=== PATIENT | male | born 1940 | race Caucasian/White ===

== ENCOUNTER 2017-06-06 06:27 | Inpatient (IN) | payer OTHER, MEDICARE ==
[2017-05-31 14:01] VITALS: BMI 36.3
[~2017-06-06 06:27] MED LIST: CELECOXIB 200 MG CAPSULE PO ONE; GABAPENTIN 300 MG CAPSULE (FP) PO ONE; PANTOPRAZOLE 40 MG TABLET (FP) PO ONE; oxyCODONE HCL 10 MG SUSTAINED ACTING TABLET PO ONE
[2017-06-06] MEDS ORDERED: DEXAMETHASONE SOD PHOSPHATE/PF 10 MG/ML SDV ONE (07:49)
[2017-06-06] MEDS ORDERED: MIDAZOLAM HCL 2 MG/2 ML SINGLE DOSE VIAL ONE (07:49)
[2017-06-06] MEDS ORDERED: BUPIVACAINE HCL/PF (5 MG/ML) 30 ML VIAL IJ ONE (07:49)
[2017-06-06] MEDS ORDERED: ROPIVICAINE 0.2%/MORPH PF/KETOROLAC - 51ML DISP.SYRINGE IA ONE ×2 (08:00→08:43)
[2017-06-06] MEDS ORDERED: TRANEXAMIC ACID 1000 MG/10 ML VIAL IVPUSH ONE (08:00)
[2017-06-06] MEDS ORDERED: CEFAZOLIN 2 GM in DEXTROSE 5%-WATER - 50 ML IVPB ONE (08:00)
[2017-06-06] MEDS ORDERED: ceFAZolin SODIUM 1 GM VIAL ONE ×3 (08:43→09:40)
[2017-06-06] MEDS ORDERED: TRANEXAMIC ACID 1000 MG/10 ML VIAL ONE ×3 (08:43→13:15)
[2017-06-06] MEDS ORDERED: VANCOMYCIN 1,000 MG VIAL (RESTRICTED TO ID ONLY) ONE (08:43)
--- NOTE | 2017-06-06 08:53 | HP ---
Admitting History and Physical - Admission Chief Complaint: left hip osteroarthritis x years History of Present Illness: 77 year old male presenting in regard to his left hip. Longstanding history of left hip osteoarthritis. Patient complains of pain, limited ROM, difficulty ambulating and difficulty with ADLs including putting on his socks and shoes. Patient has failed conservative treatment measures including PO medication, activity modification, injections and an exercise program. At this point, patient would like to proceed with a left total hip arthroplasty, MAKOplasty. History Source: Patient - Past Medical History Cardiovascular: Yes: HTN Renal/: Yes: BPH - Past Surgical History Additional Past Surgical History: see written history & physical - Advance Directives Advance Directives: Yes: Health Care Proxy - Smoking History Smoking history: Former smoker Have you smoked in the past 12 months: Yes Aproximately how many cigarettes per day: 40 If you are a former smoker, when did you quit?: 1986 - Alcohol/Substance Use Hx Alcohol Use: Yes (SOCIALLY) Home Medications - Allergies Allergies/Adverse Reactions: Allergies Allergy/AdvReac Type Severity Reaction Status Date / Time No Known Allergies Allergy Verified 05/31/17 14:01 - Home Medications Home Medications: Ambulatory Orders Aspirin Coated [Ecotrin -] 81 mg PO HS 05/31/17 Quinapril HCl 80 mg PO DAILY 05/31/17 Silodosin [Rapaflo] 4 mg PO DAILY 05/31/17 Nifedipine [Adalat cc] 90 mg PO DAILY 06/05/17 Review of Systems - Review of Systems Musculoskeletal: reports: Decreased ROM (left hip), Joint Pain (left hip) Physical Examination Vital Signs: Vital Signs Temperature 98.2 F 06/06/17 06:52 Pulse Rate 76 06/06/17 06:52 Respiratory Rate 18 06/06/17 06:52 Blood Pressure 142/76 06/06/17 06:52 O2 Sat by Pulse Oximetry (%) Constitutional: Yes: Well Nourished, No Distress Eyes: Yes: Conjunctiva Clear HENT: Yes: Atraumatic, Nasal Congestion Neck: Yes: Supple Cardiovascular: Yes: Regular Rate and Rhythm Respiratory: Yes: Regular Gastrointestinal: Yes: Soft ...Rectal Exam: Yes: Deferred Musculoskeletal: Yes: Joint Stiffness (left hip) Assessment/Plan 77 year old male presenting in regard to his left hip. Longstanding history of left hip osteoarthritis. Patient complains of pain, limited ROM, difficulty ambulating and difficulty with ADLs including putting on his socks and shoes. Patient has failed conservative treatment measures including PO medication, activity modification, injections and an exercise program. Pros, cons, risks, benefits and alternatives of a left total hip arthroplasrty, MAKOplasty were discussed. Patient confirms their understanding, patient would like to proceed with a left total hip arthroplasty, MAKOplasty.
[2017-06-06] MEDS ORDERED: ePHEDrine SULFATE 50 MG/1 ML AMPULE ONE (09:40)
[2017-06-06] MEDS ORDERED: ONDANSETRON 4 MG/2 ML VIAL ONE (09:40)
[2017-06-06] MEDS ORDERED: DEXAMETHASONE SOD PHOSPHATE 4 MG/1 ML VIAL ONE (09:40)
[2017-06-06] MEDS ORDERED: PROPOFOL 20 ML ONE ×5 (09:58→13:44)
[2017-06-06] MEDS ORDERED: SODIUM CHLORIDE 0.9% P/F 10 ML VIAL IJ ONE (10:17)
[2017-06-06] MEDS ORDERED: PHENYLEPHRINE HCL 10 MG/1 ML SINGLE DOSE VIAL ONE (10:17)
[2017-06-06] MEDS ORDERED: METOPROLOL TARTRATE 5 MG/5 ML VIAL ONE (12:20)
[2017-06-06] MEDS ORDERED: KETOROLAC TROMETHAMINE 30 MG/1 ML VIAL ONE (14:15)
[2017-06-06] MEDS ORDERED: traMADol HCL 50 MG TABLET ONE (14:15)
[2017-06-06] MEDS ORDERED: ACETAMINOPHEN INJECTION 100 ML IVPB ONE (14:15)
--- NOTE | 2017-06-06 14:28 | OP ---
Operative Note - Note: Operative Date: 06/06/17 Pre-Operative Diagnosis: Left hip OA Operation: Left TRACI Post-Operative Diagnosis: Same as Pre-op Surgeon: Sampson Echeverria Supervisor Photocomposition: Jayna Bell Anesthesia: Spinal Estimated Blood Loss (mls): 400
[2017-06-06] MEDS ORDERED: ONDANSETRON 4 MG/2 ML VIAL IVPUSH PRN ×2 (14:29→14:31)
[2017-06-06] MEDS ORDERED: MAGNESIUM HYDROX 2400MG/30ML ORAL SUSPENSION 30 ML CUP PO PRN (14:29)
[2017-06-06] MEDS ORDERED: MAG HYDROX/AL HYDROX/SIMETH 30 ML UNIT-DOSE CUP PO PRN (14:29)
[2017-06-06] MEDS ORDERED: LACTATED RINGERS SOLUTION 1,000 ML IV SCH (14:30)
[2017-06-06] MEDS ORDERED: ACETAMINOPHEN 1000 MG/100 ML VIAL (NON FORMULARY) IVPB ONE (14:31)
[2017-06-06] MEDS ORDERED: oxyCODONE HCL 5 MG TABLET PO PRN ×2 (14:31)
[2017-06-06] MEDS ORDERED: PROMETHAZINE HCL 25 MG/1 ML VIAL IVPUSH PRN (14:31)
[2017-06-06] MEDS ORDERED: traMADol HCL 50 MG TABLET PO SCH (14:45)
[2017-06-06] MEDS: KETOROLAC TROMETHAMINE 30 MG/1 ML VIAL IVPUSH SCH ×2 (14:48→21:11)
[2017-06-06] MEDS: CEFAZOLIN 2 GM/D5W 2 GM/50 ML ML IVPB SCH (17:20)
[2017-06-06] MEDS ORDERED: DEXAMETHASONE SOD PHOSPHATE 10 MG/1 ML VIAL IVPUSH ONE (20:00)
[2017-06-06] MEDS: ACETAMINOPHEN 325 MG TABLET (FP) PO SCH (21:12)
[2017-06-06] MEDS: ASCORBIC ACID 500 MG TABLET (FP) PO SCH (22:39)
[2017-06-06] MEDS: traMADol HCL 50 MG TABLET PO SCH (22:39)
[2017-06-06] MEDS: SENNOSIDES/DOCUSATE COMBO (SENNA PLUS) TABLET (UD) PO SCH (22:39)
[2017-06-06] MEDS: GABAPENTIN 300 MG CAPSULE (FP) PO SCH (22:39)
[2017-06-06] MEDS: oxyCODONE HCL 10 MG SUSTAINED ACTING TABLET PO SCH (22:40)
[2017-06-07] MEDS: CEFAZOLIN 2 GM/D5W 2 GM/50 ML ML IVPB SCH (02:14)
[2017-06-07] MEDS: KETOROLAC TROMETHAMINE 30 MG/1 ML VIAL IVPUSH SCH ×2 (03:10→08:30)
[2017-06-07] MEDS: ACETAMINOPHEN 325 MG TABLET (FP) PO SCH ×4 (03:11→21:47)
[2017-06-07] MEDS: ASPIRIN 325 MG TABLET PO SCH (08:30)
[2017-06-07 09:03] LABS: ANION GAP 7 (8-16); BLOOD UREA NITROGEN 32 mg/dl (7-18); CALCIUM 8.8 mg/dl (8.4-10.2); CHLORIDE 104 mmol/L (98-107); CO2 24 mmol/L (22-28); CREATININE 1.2 mg/dl (0.6-1.3); GLUCOSE,RANDOM 145 mg/dl (74-106); POTASSIUM 5.2 mmol/L (3.5-5.1); SODIUM 135 mmol/L (136-145)
[2017-06-07 09:06] LABS: HEMATOCRIT 34.1 % (35.4-49); HEMOGLOBIN 11.4 GM/dl (11.7-16.9); MCH 31.1 pg (25.7-33.7); MCHC 33.5 g/dl (32.0-35.9); MEAN CELL VOLUME 92.9 fl (80-96); PLATELET COUNT 239 K/MM3 (134-434); RBC 3.67 M/mm3 (4.00-5.60); RDW 12.4 % (11.9-15.9); WHITE BLOOD COUNT 11.4 K/mm3 (4.0-10.8)
[2017-06-07] MEDS ORDERED: PATIENT'S OWN MEDICATION (NON-FORMULARY) (Silodosin [Rapaflo] 4 MG) PO SCH (10:00)
[2017-06-07] MEDS ORDERED: QUINAPRIL HCL 20 MG TABLET (FP) ONE (10:30)
[2017-06-07] MEDS: GABAPENTIN 300 MG CAPSULE (FP) PO SCH ×2 (10:42→21:46)
[2017-06-07] MEDS: NIFEdipine E.R. 90 MG TABLET (FP) PO SCH (10:42)
[2017-06-07] MEDS: CELECOXIB 200 MG CAPSULE PO SCH (10:42)
[2017-06-07] MEDS: PANTOPRAZOLE 40 MG TABLET (FP) PO SCH (10:42)
[2017-06-07] MEDS: traMADol HCL 50 MG TABLET PO SCH ×4 (10:42→21:47)
[2017-06-07] MEDS: MULTIVITAMINS (DAILY MVI) TABLET (FP) PO SCH (10:42)
[2017-06-07] MEDS: oxyCODONE HCL 10 MG SUSTAINED ACTING TABLET PO SCH ×2 (10:43→21:46)
[2017-06-07] MEDS: ASCORBIC ACID 500 MG TABLET (FP) PO SCH ×2 (10:43→21:46)
[2017-06-07] MEDS: SENNOSIDES/DOCUSATE COMBO (SENNA PLUS) TABLET (UD) PO SCH ×2 (10:43→21:46)
[2017-06-07] MEDS: QUINAPRIL HCL 40 MG TABLET (FP) PO SCH (10:43)
--- NOTE | 2017-06-07 11:46 | PN ---
Progress Note (short form) - Note Progress Note: ANESTHESIA POSTOP: 77 YO MALE POD#1 S/P TRACI S: Patient sitting in chair, watching TV, in no distress, reports no pain O: Vitals WNL A/P: Continue current care, encouraged ambulation and participation in PT, encouraged IS use
[2017-06-07 23:03] VITALS: PULSE 70
--- NOTE | 2017-06-08 01:41 | PN ---
Progress Note (short form) - Note Progress Note: Pt seen and examined. Doing very well. AVSS Selected Entries 06/07/17 22:00 Temperature 98.1 F Pulse Rate 70 Respiratory 18 Rate Blood Pressure 129/68 O2 Sat by Pulse 95 Oximetry (%) Oxygen Delivery Room Air Method Laboratory Tests 06/07/17 06/07/17 08:07 08:07 WBC 11.4 H Hgb 11.4 L Hct 34.1 L Plt Count 239 Sodium 135 L Potassium 5.2 H Chloride 104 Carbon Dioxide 24 Anion Gap 7 L BUN 32 H Creatinine 1.2 Random Glucose 145 H Calcium 8.8 Gen: NAD LLE: c/d/i, NVID A/P 77yo male POD#1 s/p L TRACI 1. D/C in AM after PT; f/u in office in 10-14 days, call for appt.
--- NOTE | 2017-06-08 01:49 | DS ---
Physical Examination Vital Signs: Vital Signs Temperature 98.1 F 06/07/17 22:00 Pulse Rate 70 06/07/17 22:00 Respiratory Rate 18 06/07/17 22:00 Blood Pressure 129/68 06/07/17 22:00 O2 Sat by Pulse Oximetry (%) 95 06/07/17 22:00 Labs: CBC, BMP 06/07/17 08:07 06/07/17 08:07 Discharge Summary Reason For Visit: OSTEOARTHRITIS OF LEFT HIP Current Active Problems Osteoarthritis of left hip (Acute) Procedures: Principal: Left Makoplasty TRACI Hospital Course: Admitted for elective surgery. Procedure performed without complications. Pt received postoperative antibiotic prophylaxis and DVT ppx. Ambulated with physical therapy. Stable for discharge home with outpatient followup. Condition: Stable - Instructions Diet, Activity, Other Instructions: Dr Echeverria - Hip Replacement Instructions Keep the Aquacel dressing on until removed by Dr. Echeverria in 10-14 days - it is antibacterial and waterproof and you can shower with it on. Call the office for a follow-up appointment with Dr. Echeverria in 10-14 days. [phone] Take one Aspirin 325mg daily for 6 weeks to prevent blood clots in your legs. Take one Pantoprazole 40mg daily for 6 weeks to protect against heartburn and ulcers. Take Celebrex 200mg once daily for 30 days to reduce swelling and inflammation. Take Cephalexin (antibiotic) 500mg 3x/day for 2 weeks to protect against wound infection while the skin heals. Take a multivitamin, extra vitamin C supplement, and stool softener daily. For pain: *Mild pain (1-3/10): Take 1 Tramadol tablet every 4 hours as needed. Moderate pain (4-6/10): Take 1 Tramadol tablet and 1 Percocet tablet every 4 hours as needed. Severe pain (7-10/10): Take 1 Tramadol tablet and 2 Percocet tablets every 4 hours as needed. Activity: You can put as much weight on the operative leg as you want. For the first 6 weeks, all you need to do is walk around the house, go up/down stairs, and sit down/get up. After 6 weeks when everything is healed (and bone has grown into the implant) you will be sent for more intensive outpatient physical therapy. Always use a walker or cane for balance and to prevent falls. Disposition: VNS/HOME HEALTH CARE - Home Medications Comprehensive Discharge Medication List: Ambulatory Orders Quinapril HCl 80 mg PO DAILY 05/31/17 Silodosin [Rapaflo] 4 mg PO DAILY 05/31/17 Nifedipine [Adalat cc] 90 mg PO DAILY 06/05/17 Ascorbic Acid [Vitamin C -] 500 mg PO BID tablet 06/08/17 Aspirin [ASA -] 325 mg PO DAILY@0800 tablet 06/08/17 Celecoxib [CeleBREX -] 200 mg PO DAILY #30 capsule 06/08/17 Cephalexin Monohydrate [Keflex -] 500 mg PO TID #42 capsule 06/08/17 Multivitamins [Multivit ([facility] Formulary)] 1 tab PO DAILY tab 06/08/17 Oxycodone HCl/Acetaminophen [Percocet 5-325 mg Tablet] 1 - 2 tab PO Q4H PRN #60 tablet MDD 8 06/08/17 Pantoprazole Sodium [Protonix -] 40 mg PO DAILY #40 tablet.ec 06/08/17 Sennosides/Docusate Sodium [Pericolace -] 2 tablet PO BID tablet 06/08/17 Tramadol HCl [Ultram -] 50 mg PO Q4H PRN #90 tablet MDD 6 06/08/17
[2017-06-08] MEDS: ACETAMINOPHEN 325 MG TABLET (FP) PO SCH ×3 (03:07→09:37)
[2017-06-08 07:43] LABS: HEMATOCRIT 34.5 % (35.4-49); HEMOGLOBIN 11.5 GM/dl (11.7-16.9); MCH 31.2 pg (25.7-33.7); MCHC 33.3 g/dl (32.0-35.9); MEAN CELL VOLUME 93.6 fl (80-96); MEAN PLT VOLUME 8.4 fl (7.5-11.1); PLATELET COUNT 278 K/MM3 (134-434); RBC 3.68 M/mm3 (4.00-5.60); RDW 12.9 % (11.9-15.9); WHITE BLOOD COUNT 9.6 K/mm3 (4.0-10.8)
[2017-06-08 07:50] VITALS: BP 132/68; TEMP 98.3
[2017-06-08 08:18] LABS: ANION GAP 10 (8-16); BLOOD UREA NITROGEN 35 mg/dl (7-18); CALCIUM 8.8 mg/dl (8.4-10.2); CHLORIDE 99 mmol/L (98-107); CO2 25 mmol/L (22-28); CREATININE 1.2 mg/dl (0.6-1.3); GLUCOSE,RANDOM 103 mg/dl (74-106); POTASSIUM 4.3 mmol/L (3.5-5.1); SODIUM 134 mmol/L (136-145)
[2017-06-08] MEDS ORDERED: QUINAPRIL HCL 20 MG TABLET (FP) ONE (09:28)
[2017-06-08] MEDS: NIFEdipine E.R. 90 MG TABLET (FP) PO SCH (09:34)
[2017-06-08] MEDS: MULTIVITAMINS (DAILY MVI) TABLET (FP) PO SCH (09:34)
[2017-06-08] MEDS: GABAPENTIN 300 MG CAPSULE (FP) PO SCH (09:35)
[2017-06-08] MEDS: ASCORBIC ACID 500 MG TABLET (FP) PO SCH (09:35)
[2017-06-08] MEDS: QUINAPRIL HCL 40 MG TABLET (FP) PO SCH (09:35)
[2017-06-08] MEDS: ASPIRIN 325 MG TABLET PO SCH (09:35)
[2017-06-08] MEDS: PANTOPRAZOLE 40 MG TABLET (FP) PO SCH (09:36)
[2017-06-08] MEDS: CELECOXIB 200 MG CAPSULE PO SCH (09:36)
[2017-06-08] MEDS: traMADol HCL 50 MG TABLET PO SCH ×2 (09:36→09:37)
--- NOTE | 2017-06-14 15:43 | PATH ---
Surgical Pathology Report Patient Name: ALEC LORD Med. Rec. #: [id number] /Age/Gender: 1940 (Age: 77) / M Account: [id number] [facility] Taken: 06/06/2017 Received: 06/06/2017 Reported: 06/14/2017 Physicians: Sampson Echeverria M.D. Specimen(s) Received LEFT FEMORAL HEAD Clinical History Osteoarthritis left hip Final Diagnosis BONE, LEFT FEMORAL HEAD, REPLACEMENT: DEGENERATIVE JOINT DISEASE. Electronically Signed Alec Yoon M.D. Gross Description Received in formalin, labeled "left femoral head," is a 5.5 x 5.5 x 4.6 cm. femoral head with a 0.8 cm in length portion of femoral neck attached. The margin of resection is smooth. There is a 5.3 cm greatest dimension area of eburnation identified. The remaining articular surface is wei-yellow and diffusely granular. The underlying trabecular bone is yellow and hard. A graphic art sales representative section is submitted in one cassette, following decalcification. 06/08/201706/08/2017
== END 2017-06-08 11:31 | disposition home health service (06) | DRG 470 ==
LOC: FM/S 06:27
PROVIDERS: ADMIT Student in an Organized Health Care Education/Training Program; ATTEND Student in an Organized Health Care Education/Training Program
PROC: 8E0Y0CZ Robotic Assisted Procedure of Lower Extremity, Open Approach (ICD-10-PCS; 2017-06-06)
PROC: 0SRB0JZ Replacement of Left Hip Joint with Synthetic Substitute, Open Approach (ICD-10-PCS; principal; 2017-06-06 10:15)
DX: M16.12 Unilateral primary osteoarthritis, left hip (principal); I10 Essential (primary) hypertension; N40.0 Benign prostatic hyperplasia without lower urinary tract symptoms; Z87.891 Personal history of nicotine dependence
CPT/HCPCS: 36415; 73502-TC-LT; 80048; 85027; 88304-TC; 88311-TC; 94010; 94760; 97116-GP; 97162-GP; J1100

== ENCOUNTER 2018-05-26 06:04 | Inpatient (IN) | payer OTHER, MEDICARE ==
[2018-05-19 15:21] VITALS: BMI 33.9
[~2018-05-26 06:04] MED LIST changes: -PANTOPRAZOLE 40 MG TABLET (FP) PO ONE; +ROPIVICAINE 0.2%/MORPH PF/KETOROLAC - 51ML DISP.SYRINGE IA ONE; +TRANEXAMIC ACID 1000 MG/10 ML VIAL IVPUSH ONE
[2018-05-26] MEDS ORDERED: PANTOPRAZOLE 40 MG TABLET (FP) PO ONE (06:06)
--- NOTE | 2018-05-26 07:17 | HP ---
Admitting History and Physical - Admission Chief Complaint: Right hip osteoarthritis x years History of Present Illness: 78-year-old male presents in regard to his right hip. Long-standing history of right hip osteoarthritis. Patient complains of pain, and range of motion, difficulty with activities of daily living, and difficulty ambulating. Patient has failed conservative treatment options including PO medications, activity modification, injections, and exercise programs. At this point, patient would like to proceed with surgical intervention-right total hip arthroplasty MAKOplasty. - Past Medical History Cardiovascular: Yes: HTN Renal/: Yes: BPH (overactive bladder) Musculoskeletal: Yes: Osteoarthritis - Past Surgical History Additional Past Surgical History: See written history and physical. - Advance Directives Advance Directives: Yes: Living Will, Health Care Proxy - Smoking History Smoking history: Former smoker Have you smoked in the past 12 months: No Aproximately how many cigarettes per day: 40 If you are a former smoker, when did you quit?: 1974 - Alcohol/Substance Use Hx Alcohol Use: Yes (ocasional) Home Medications - Allergies Allergies/Adverse Reactions: Allergies Allergy/AdvReac Type Severity Reaction Status Date / Time No Known Allergies Allergy Verified 05/31/17 14:01 - Home Medications Home Medications: Ambulatory Orders Docusate Sodium 100 mg PO DAILY 01/15/18 Nifedipine [Nifedipine ER] 90 mg PO DAILY 01/15/18 Quinapril HCl [Accupril -] 40 mg PO DAILY 01/15/18 Ascorbic Acid [Vitamin C] 1,000 mg PO DAILY 05/15/18 Mirabegron [Myrbetriq] 50 mg PO HS 05/15/18 Multivit-Mins/Iron/Folic/Lycop [Centrum Men's Tablet] 1 each PO DAILY 05/15/18 Sulfamethoxazole/Trimethoprim [Bactrim Ds -] 1 tab PO BID 05/16/18 Review of Systems - Review of Systems Musculoskeletal: reports: Decreased ROM (right hip), Joint Pain (right hip) Physical Examination Vital Signs: Vital Signs Temperature 97.7 F 05/26/18 06:39 Pulse Rate 72 05/26/18 06:39 Respiratory Rate 14 05/26/18 06:39 Blood Pressure 135/68 05/26/18 06:39 O2 Sat by Pulse Oximetry (%) Constitutional: Yes: Well Nourished, No Distress Eyes: Yes: Conjunctiva Clear HENT: Yes: Atraumatic Neck: Yes: Supple Cardiovascular: Yes: Regular Rate and Rhythm Respiratory: Yes: Regular Gastrointestinal: Yes: Soft ...Rectal Exam: Yes: Deferred Musculoskeletal: Yes: Joint Stiffness (right hip) Assessment/Plan 78-year-old male presents in regard to his right hip. Long-standing history of right hip osteoarthritis. Patient complains of pain, and range of motion, difficulty with activities of daily living, and difficulty ambulating. Patient has failed conservative treatment options including PO medications, activity modification, injections, and exercise programs. At this point, patient would like to proceed with surgical intervention-right total hip arthroplasty MAKOplasty. Pros, cons, risks, and benefits of a right total hip arthroplasty MAKOplasty were discussed with the patient at length. Patient confirms his understanding, and consent to proceed with a right total hip arthroplasty to MAKOplasty.
[2018-05-26] MEDS ORDERED: MIDAZOLAM HCL 2 MG/2 ML SINGLE DOSE VIAL ONE ×3 (07:32→09:26)
[2018-05-26] MEDS ORDERED: DEXAMETHASONE SOD PHOSPHATE/PF 10 MG/ML SDV ONE (07:32)
[2018-05-26] MEDS ORDERED: BUPIVACAINE HCL/PF (5 MG/ML) 30 ML VIAL IJ ONE (07:32)
[2018-05-26] MEDS ORDERED: ceFAZolin SODIUM 1 GM VIAL ONE (08:10)
[2018-05-26] MEDS ORDERED: DEXMEDETOMIDINE HCL 200 MCG/2 ML ML IVPB ONE (09:21)
[2018-05-26] MEDS ORDERED: SODIUM CHLORIDE 0.9% P/F 10 ML VIAL IJ ONE ×2 (09:24→10:15)
[2018-05-26] MEDS ORDERED: ROPIVICAINE 0.2%/MORPH PF/KETOROLAC - 51ML DISP.SYRINGE IA ONE (09:28)
[2018-05-26] MEDS ORDERED: VANCOMYCIN 1,000 MG VIAL (RESTRICTED TO ID ONLY) IVPB ONE (09:29)
[2018-05-26] MEDS ORDERED: HYDROmorphone HCL/PF 1 MG/ML AMP ONE (10:06)
[2018-05-26] MEDS ORDERED: PROPOFOL 20 ML ONE (10:21)
[2018-05-26] MEDS ORDERED: ePHEDrine SULFATE 50 MG/1 ML AMPULE ONE (10:58)
[2018-05-26] MEDS ORDERED: MAGNESIUM HYDROX 2400MG/30ML ORAL SUSPENSION 30 ML CUP PO PRN (12:43)
[2018-05-26] MEDS ORDERED: MAG HYDROX/AL HYDROX/SIMETH 30 ML UNIT-DOSE CUP PO PRN (12:43)
[2018-05-26] MEDS ORDERED: ONDANSETRON 4 MG/2 ML VIAL IVPUSH PRN (12:43)
[2018-05-26] MEDS ORDERED: LACTATED RINGERS SOLUTION 1,000 ML IV SCH ×2 (12:45→15:00)
--- NOTE | 2018-05-26 12:56 | OP ---
Operative Note - Note: Operative Date: 05/26/18 Pre-Operative Diagnosis: right hip OA Operation: Right SATYA TRACI Post-Operative Diagnosis: Same as Pre-op Surgeon: Sampson Echeverria Printed Circuit Boards Inspector: Jayna Bell Anesthesia: Spinal Estimated Blood Loss (mls): 200
[2018-05-26] MEDS ORDERED: ACETAMINOPHEN 1000 MG/100 ML VIAL (NON FORMULARY) IVPB ONE ×2 (13:00→13:06)
[2018-05-26] MEDS ORDERED: KETOROLAC TROMETHAMINE 30 MG/1 ML VIAL IVPUSH ONE (13:00)
[2018-05-26] MEDS ORDERED: traMADol HCL 50 MG TABLET PO ONE (13:09)
[2018-05-26] MEDS ORDERED: CEFAZOLIN 2 GM/D5W 2 GM/50 ML ML IVPB SCH (13:15)
[2018-05-26] MEDS ORDERED: oxyCODONE HCL 5 MG TABLET PO PRN ×2 (14:50)
[2018-05-26] MEDS: KETOROLAC TROMETHAMINE 30 MG/1 ML VIAL IVPUSH SCH (19:38)
[2018-05-26] MEDS: traMADol HCL 50 MG TABLET PO SCH (19:54)
[2018-05-26] MEDS ORDERED: DEXAMETHASONE SOD PHOSPHATE 10 MG/1 ML VIAL IVPB ONE (20:00)
[2018-05-26] MEDS: CEFAZOLIN 2 GM/D5W 2 GM/50 ML ML IVPB SCH (20:51)
[2018-05-26] MEDS: SULFAMETHOXAZOLE/TRIMETHOPRIM 800MG/160MG D.S. TABLET PO SCH (21:38)
[2018-05-26] MEDS: ASCORBIC ACID 500 MG TABLET (FP) PO SCH (21:39)
[2018-05-26] MEDS: SENNOSIDES/DOCUSATE COMBO (SENNA PLUS) TABLET (UD) PO SCH (21:39)
[2018-05-26] MEDS: CELECOXIB 200 MG CAPSULE PO SCH (21:39)
[2018-05-26] MEDS: GABAPENTIN 300 MG CAPSULE (FP) PO SCH (21:39)
--- NOTE | 2018-05-26 21:51 | SPEC ---
DATE OF OPERATION: 05/26/2018 PREOPERATIVE DIAGNOSIS: Right hip osteoarthritis. POSTOPERATIVE DIAGNOSIS: Right hip osteoarthritis. PROCEDURE: Right total hip replacement with MAKOplasty robotic navigation. ATTENDING: Nakia Gray MD ASSOCIATE PROGRAMMER: CLAUDIA Azevedo ANESTHESIA: Spinal plus sedation. ESTIMATED BLOOD LOSS: 200 mL COMPLICATIONS: None. DISPOSITION: The patient was transferred to the PACU in stable condition. IMPLANTS USED: [place] Accolade II size 5 femoral component, Shikha Tritanium 56-mm acetabular component with 25- and 30-mm acetabular screws, MDM bipolar head ball and liner with inner 28 plus 4-mm ceramic head ball. INDICATIONS: This is a 78-year-old male who presented to the office complaining of bilateral hip pain. He was seen and examined by Dr. Gray and diagnosed with bilateral hip severe osteoarthritis. The patient underwent a left total hip replacement in July 2017, and did very well postoperatively. He continued to have severe right hip pain and ambulatory dysfunction, however, and was indicated for a right total hip replacement. The risks, benefits, and alternatives to the procedure were explained to the patient in great detail, and they elected to proceed with the surgery. On the day of surgery, the patient was taken to the operating room and placed on the OR table. Spinal anesthesia was administered by the anesthesiologist. The patient was then positioned in the lateral decubitus position on the table and all bony prominences were padded. An axillary roll was placed. The operative hip was then prepped and draped in the usual sterile fashion and intravenous antibiotics were given for infection prophylaxis. A surgical time-out was then performed with the team, and the patients identity, procedure, side, availability of implants, and the administration of antibiotics were confirmed. An approximately 15-cm longitudinal incision was made through the skin centered on the greater trochanter of the hip. This dissection was carried down through the subcutaneous tissues to the deep fascia. This fascia was then incised and a Cobra was placed around the inferior femoral neck. Electrocautery was used to reflect the anterior 40% of the gluteus medius and minimus starting at the musculotendinous junction and leaving a cuff for closure. This was reflected to reveal the capsule of the hip joint. An anterior capsulectomy was performed and the femoral head and neck were visualized. Grade 4 changes were noted diffusely throughout the joint. At this point, three small stab incisions were made superior to the main incision along the iliac crest. Three self-drilling Steinmann pins were then placed and the DestinationRX pelvic array was attached. Reference points on the limb were then entered into the robotic device and the limb length deficiency, offset, and femoral neck resection level were then calculated by the software. The hip was then dislocated with traction and external rotation. An oscillating saw was used to make the femoral neck cut at the level previously templated, and the femoral head was removed. Attention was then turned to the acetabulum. Retractors were then placed around the acetabulum and the labrum was removed. An acetabular checkpoint pin and the DestinationRX software were used to register the contours of the acetabulum. The acetabulum was then reamed in a single stage to the preoperatively templated size using the DestinationRX robotic arm. The appropriately sized cup was then impacted and had solid fixation as well as the preset inclination and version of 40 and 20 degrees, respectively. A polyethylene liner was then placed in the cup. Attention was then turned back to the femur, which was externally rotated for improved visualization. A femoral neck elevator was used to present the femoral neck cut, a box osteotome was used to enter the femoral canal, and a canal finder was used to go down the femoral shaft. The Jayy broaches were used sequentially until the optimal scratch fit was achieved. This correlated with the preoperatively templated size. From here, several different offset head and neck configurations were tested until excellent stability and length were obtained. These measurements were quantified using the DestinationRX software. All trial components were then removed, the femur was copiously irrigated, and the final components were placed. Leg length and stability were checked again and found to be excellent. Irrigation was performed again. Wound closure was started by repairing the abductor muscles with a no. 2 FiberWire stitch in a Krackow configuration passed through bone tunnels in the greater trochanter and tied over a bony bridge. This repair was then reinforced with a 0 V-Loc 180 barbed suture. Next, no. 1 Polysorb and 0 V-Loc 180 were used to close the fascia. The deep subcutaneous tissue was closed with no. 1 Polysorb sutures, and 2-0 Polysorb was used for the superficial subcutaneous tissue. The skin was closed using both 3-0 V-Loc 90 suture in a running subcuticular fashion and SwiftSet skin adhesive. The Jayy array and pins were removed from the iliac crest and the stab incision sites were irrigated and closed with 4-0 Polysorb sutures and SwiftSet skin adhesive. Once this was completed, a sterile dressing was applied. The patient was then awakened and taken to the PACU in stable condition. ADDENDUM: After final implants were placed, a 3-minute dilute Betadine lavage was performed. Following this, the wound was thoroughly irrigated with normal saline, and wound closure was begun. NAKIA GRAY M.D. [id number]
[2018-05-26] MEDS ORDERED: PATIENT'S OWN MEDICATION (NON-FORMULARY) (Mirabegron [Myrbetriq] 50 MG) PO SCH (22:00)
[2018-05-27] MEDS: KETOROLAC TROMETHAMINE 30 MG/1 ML VIAL IVPUSH SCH ×3 (00:32→15:00)
[2018-05-27] MEDS: traMADol HCL 50 MG TABLET PO SCH ×4 (00:32→19:09)
[2018-05-27] MEDS: CEFAZOLIN 2 GM/D5W 2 GM/50 ML ML IVPB SCH (03:15)
[2018-05-27] MEDS: ASPIRIN 325 MG TABLET PO SCH (07:49)
[2018-05-27 07:51] LABS: HEMATOCRIT 32.5 % (35.4-49); HEMOGLOBIN 10.9 GM/dl (11.7-16.9); MCH 30.3 pg (25.7-33.7); MCHC 33.5 g/dl (32.0-35.9); MEAN CELL VOLUME 90.4 fl (80-96); MEAN PLT VOLUME 7.8 fl (7.5-11.1); PLATELET COUNT 292 K/MM3 (134-434); RBC 3.59 M/mm3 (4.00-5.60); RDW 13.4 % (11.9-15.9); WHITE BLOOD COUNT 11.2 K/mm3 (4.0-10.8)
[2018-05-27 08:10] LABS: ANION GAP 9 MMOL/L (8-16); BLOOD UREA NITROGEN 34 mg/dl (7-18); CALCIUM 9.2 mg/dl (8.4-10.2); CHLORIDE 105 mmol/L (98-107); CO2 22 mmol/L (22-28); CREATININE 1.1 mg/dl (0.6-1.3); GLUCOSE,RANDOM 138 mg/dl (74-106); POTASSIUM 5.2 mmol/L (3.5-5.1); SODIUM 136 mmol/L (136-145)
[2018-05-27] MEDS: ASCORBIC ACID 500 MG TABLET (FP) PO SCH ×2 (10:15→21:47)
[2018-05-27] MEDS: NIFEdipine E.R. 90 MG TABLET (FP) PO SCH (10:15)
[2018-05-27] MEDS: PANTOPRAZOLE 40 MG TABLET (FP) PO SCH (10:15)
[2018-05-27] MEDS: SENNOSIDES/DOCUSATE COMBO (SENNA PLUS) TABLET (UD) PO SCH ×2 (10:15→21:47)
[2018-05-27] MEDS: QUINAPRIL HCL 20 MG TABLET (FP) PO SCH (10:15)
[2018-05-27] MEDS: DOCUSATE SODIUM 100 MG CAPSULE (FP) PO SCH (10:16)
[2018-05-27] MEDS: CELECOXIB 200 MG CAPSULE PO SCH ×2 (10:16→21:47)
[2018-05-27] MEDS: GABAPENTIN 300 MG CAPSULE (FP) PO SCH ×2 (10:16→21:47)
[2018-05-27] MEDS: MULTIVITAMINS (DAILY MVI) TABLET (FP) PO SCH (10:18)
[2018-05-27] MEDS: SULFAMETHOXAZOLE/TRIMETHOPRIM 800MG/160MG D.S. TABLET PO SCH (10:18)
--- NOTE | 2018-05-27 10:29 | PN ---
Progress Note (short form) - Note Progress Note: 78M POD1 s/p R THR under spinal anesthetic with peripheral nerve blocks. Pt states that pain is well controlled and reports no anesthetic complications. AVSS. Motor and sensory exam intact in bilateral lower extremities. Continue current regimen.
[2018-05-28] MEDS: SULFAMETHOXAZOLE/TRIMETHOPRIM 800MG/160MG D.S. TABLET PO SCH ×2 (02:53→09:52)
[2018-05-28] MEDS: traMADol HCL 50 MG TABLET PO SCH ×3 (02:54→12:24)
--- NOTE | 2018-05-28 03:26 | PN ---
Progress Note (short form) - Note Progress Note: Pt seen and examined. Doing well. AVSS Laboratory Tests 05/27/18 05/27/18 07:10 07:10 WBC 11.2 H Hgb 10.9 L Hct 32.5 L Sodium 136 Potassium 5.2 H D Chloride 105 Carbon Dioxide 22 Anion Gap 9 BUN 34 H Creatinine 1.1 Creat Clearance w eGFR > 60 Random Glucose 138 H D Calcium 9.2 Gen: NAD RLE: c/d/i, NVID A/P POD#1 s/p R TRACI PT/OOB D/C home in AM
--- NOTE | 2018-05-28 03:32 | DS ---
Physical Examination Vital Signs: Vital Signs Temperature 98.7 F 05/27/18 22:00 Pulse Rate 70 05/27/18 22:00 Respiratory Rate 16 05/27/18 22:00 Blood Pressure 116/62 05/27/18 22:00 O2 Sat by Pulse Oximetry (%) 96 05/27/18 22:00 Labs: CBC, BMP 05/27/18 07:10 05/27/18 07:10 Discharge Summary Reason For Visit: RIGHT HIP OSTEOARTHRITIS Current Active Problems Osteoarthritis of right hip (Acute) Procedures: Principal: right saji Hospital Course: Admitted for elective surgery. Procedure performed without complications. Pt received postoperative antibiotic prophylaxis and DVT ppx. Ambulated with physical therapy. Stable for discharge home with outpatient followup. Condition: Stable - Instructions Diet, Activity, Other Instructions: Dr Echeverria - Hip Replacement Instructions Keep the Aquacel dressing on until removed by Dr. Echeverria in 10-14 days - it is antibacterial and waterproof and you can shower with it on. Call the office for a follow-up appointment with Dr. Echeverria in 10-14 days. Take one Aspirin 325mg daily for 6 weeks to prevent blood clots in your legs. Take one Pantoprazole 40mg daily for 6 weeks to protect against heartburn and ulcers. Take Cephalexin (antibiotic) 3x/day for 10 days to help prevent skin infection. Take Celebrex 200mg once daily for 30 days to reduce swelling and inflammation. Take a multivitamin, stool softener and extra Vitamin C supplement daily. For pain: *Mild pain (1-3/10): Take 1 Tramadol tablet every 4 hours as needed. Moderate pain (4-6/10): Take 1 Tramadol tablet and 1 Percocet tablet every 4 hours as needed. Severe pain (7-10/10): Take 1 Tramadol tablet and 2 Percocet tablets every 4 hours as needed. Activity: You can put as much weight on the operative leg as you want. For the first 6 weeks, all you need to do is walk around the house, go up/down stairs, and sit down/get up. After 6 weeks when everything is healed (and bone has grown into the implant) you will be sent for more intensive outpatient physical therapy. Always use a walker or cane for balance and to prevent falls. Expect to see swelling / bruising from the operative site all the way down to your toes. Wear the Compression stocking on the operative side during the day to minimize how much swelling there is in your foot/ankle. Don't wear the stocking at night. You don't have to wear the stocking on the other side. Disposition: VNS/HOME HEALTH CARE - Home Medications Comprehensive Discharge Medication List: Ambulatory Orders Docusate Sodium 100 mg PO DAILY 01/15/18 Nifedipine [Nifedipine ER] 90 mg PO DAILY 01/15/18 Quinapril HCl [Accupril -] 40 mg PO DAILY 01/15/18 Ascorbic Acid [Vitamin C] 1,000 mg PO DAILY 05/15/18 Mirabegron [Myrbetriq] 50 mg PO HS 05/15/18 Multivit-Mins/Iron/Folic/Lycop [Centrum Men's Tablet] 1 each PO DAILY 05/15/18 Aspirin [ASA -] 325 mg PO DAILY@0800 tablet 05/28/18 Celecoxib [CeleBREX -] 200 mg PO DAILY #30 capsule 05/28/18 Cephalexin Monohydrate [Keflex -] 500 mg PO TID #30 capsule 05/28/18 Multivitamins [Multivit ([facility] Formulary)] 1 tab PO DAILY tab 05/28/18 Oxycodone HCl/Acetaminophen [Percocet 5-325 mg Tablet] 1 - 2 tab PO Q4H PRN #60 tablet MDD 10 05/28/18 Pantoprazole Sodium [Protonix -] 40 mg PO DAILY #40 tablet.ec 05/28/18 Sennosides/Docusate Sodium [Pericolace -] 2 tablet PO BID tablet 05/28/18 traMADol HCL [Ultram -] 50 mg PO Q4H PRN #42 tablet MDD 6 05/28/18
[2018-05-28] MEDS: ASPIRIN 325 MG TABLET PO SCH (08:07)
[2018-05-28 08:16] LABS: HEMATOCRIT 29.5 % (35.4-49); HEMOGLOBIN 9.9 GM/dl (11.7-16.9); MCH 30.6 pg (25.7-33.7); MCHC 33.5 g/dl (32.0-35.9); MEAN CELL VOLUME 91.3 fl (80-96); MEAN PLT VOLUME 7.7 fl (7.5-11.1); PLATELET COUNT 254 K/MM3 (134-434); RBC 3.23 M/mm3 (4.00-5.60); RDW 13.2 % (11.9-15.9); WHITE BLOOD COUNT 7.7 K/mm3 (4.0-10.8)
[2018-05-28 09:31] LABS: ANION GAP 6 MMOL/L (8-16); BLOOD UREA NITROGEN 31 mg/dl (7-18); CALCIUM 8.7 mg/dl (8.4-10.2); CHLORIDE 108 mmol/L (98-107); CO2 23 mmol/L (22-28); CREATININE 0.9 mg/dl (0.6-1.3); GLUCOSE,RANDOM 95 mg/dl (74-106); POTASSIUM 4.2 mmol/L (3.5-5.1); SODIUM 137 mmol/L (136-145)
[2018-05-28] MEDS: ASCORBIC ACID 500 MG TABLET (FP) PO SCH (09:51)
[2018-05-28] MEDS: GABAPENTIN 300 MG CAPSULE (FP) PO SCH (09:51)
[2018-05-28] MEDS: MULTIVITAMINS (DAILY MVI) TABLET (FP) PO SCH (09:51)
[2018-05-28] MEDS: QUINAPRIL HCL 20 MG TABLET (FP) PO SCH (09:52)
[2018-05-28] MEDS: NIFEdipine E.R. 90 MG TABLET (FP) PO SCH (09:52)
[2018-05-28] MEDS: CELECOXIB 200 MG CAPSULE PO SCH (09:52)
[2018-05-28] MEDS: SENNOSIDES/DOCUSATE COMBO (SENNA PLUS) TABLET (UD) PO SCH (09:52)
[2018-05-28] MEDS: DOCUSATE SODIUM 100 MG CAPSULE (FP) PO SCH (11:07)
[2018-05-28] MEDS: PANTOPRAZOLE 40 MG TABLET (FP) PO SCH (11:07)
[2018-05-28 12:27] VITALS: BP 139/58; PULSE 83; TEMP 99
--- NOTE | 2018-05-30 16:52 | PATH ---
Surgical Pathology Report Patient Name: VIRGEN LORD Med. Rec. #: [id number] /Age/Gender: 1940 (Age: 78) / M Account: [id number] Location: [facility] Taken: 05/26/2018 Received: 05/26/2018 Reported: 05/30/2018 Physicians: Sampson Echeverria M.D. Specimen(s) Received HEAD OF RIGHT FEMUR Clinical History Right hip osteoarthritis Final Diagnosis HEAD OF FEMUR, RIGHT, TOTAL HIP REPLACEMENT: DEGENERATIVE JOINT DISEASE. Electronically Signed Jody John M.D. Gross Description Received in formalin, labeled "head of right femur," is a 5.2 x 5.2 x 4.5 cm. femoral head with a 1.2 cm in length portion of femoral neck attached. The margin of resection is smooth. There is a 5.0 cm in greatest dimension area of eburnation present. The remaining articular surface is wei-yellow and diffusely nodular and granular. The underlying trabecular bone is yellow and hard. A community relations representative section is submitted in one cassette, following decalcification. /05/28/2018 [facility]05/28/2018
== END 2018-05-28 12:45 | disposition home health service (06) | DRG 470 ==
LOC: FM/S 06:04
PROVIDERS: ADMIT Student in an Organized Health Care Education/Training Program; ATTEND Student in an Organized Health Care Education/Training Program
PROC: 8E0W0CZ Robotic Assisted Procedure of Trunk Region, Open Approach (ICD-10-PCS; 2018-05-26)
PROC: 0SR90JZ Replacement of Right Hip Joint with Synthetic Substitute, Open Approach (ICD-10-PCS; principal; 2018-05-26 11:00)
DX: M16.11 Unilateral primary osteoarthritis, right hip (principal)
CPT/HCPCS: 36415; 73523-TC-FY; 80048; 85027; 88304-TC; 88311-TC; 94760; 97116-GP; 97162-GP; J0131; J1100

== ENCOUNTER 2019-03-10 20:52 | Inpatient (IN) | payer OTHER, MEDICARE ==
[2019-03-10] MEDS ORDERED: ACETAMINOPHEN 1000 MG/100 ML VIAL (NON FORMULARY) IVPB ONE (21:45)
[2019-03-10 21:54] LABS: BASO % 0.8 % (0-2.0); HEMATOCRIT 36.5 % (35.4-49); HEMOGLOBIN 12.4 GM/dL (11.7-16.9); LYMPH % 10.4 % (8-40); MCHC 33.9 g/dl (32.0-35.9); MEAN CELL VOLUME 91.4 fl (80-96); MEAN PLT VOLUME 8.3 fl (7.5-11.1); NEUT % 81.8 % (42.8-82.8); PLATELET COUNT 170 K/MM3 (134-434); RBC 3.99 M/mm3 (4.00-5.60); RDW 13.3 % (11.9-15.9); WHITE BLOOD COUNT 4.1 K/mm3 (4.0-10.0)
[2019-03-10 22:02] LABS: VENOUS PC02 42.1 mmHg (38-52); VENOUS PO2 84.1 mmHg (28-48)
[2019-03-10 22:08] LABS: VENOUS PH 7.1 (7.31-7.41)
[2019-03-10 22:14] LABS: INR 1.14 (0.83-1.09); PROTHROMBIN TIME (PATIENT) 13.5 SEC (9.7-13.0)
[2019-03-10 22:16] LABS: ACTIVATED PTT 30.2 SECONDS (25.2-36.5)
[2019-03-10 22:32] LABS: ALBUMIN 3.8 g/dl (3.4-5.0); BILIRUBIN,TOTAL 0.8 mg/dL (0.2-1); BLOOD UREA NITROGEN 22.5 mg/dL (7-18); CALCIUM 8.3 mg/dL (8.5-10.1); CREATININE 1.3 mg/dL (0.55-1.3); POTASSIUM 3.6 mmol/L (3.5-5.1); TOT PROT 7.2 g/dl (6.4-8.2)
[2019-03-10 22:50] LABS: EPI CELLS 3.7 /HPF (0-5/HPF); HYALINE CASTS 7 /lpf (0-8); URINE APPEARANCE CLEAR; URINE BACTERIA 9.8 /hpf (NEGATIVE); URINE BILIRUBIN NEGATIVE (NEGATIVE); URINE COLOR YELLOW; URINE GLUCOSE (UA) NEGATIVE (NEGATIVE); URINE KETONE NEGATIVE (NEGATIVE); URINE LEUK ESTERASE 2+ (NEGATIVE); URINE NITRITE NEGATIVE (NEGATIVE); URINE PROTEIN 2+ (NEGATIVE); URINE RBC 7 /hpf (0-4); URINE WBC 43 /hpf (0-5)
[2019-03-11] MEDS ORDERED: CEFTRIAXONE 1,000 MG in DEXTROSE 5%-WATER - 50 ML IVPB STA (00:36)
[2019-03-11] MEDS ORDERED: CEFTRIAXONE 1 GM/50 ML BAG ONE (00:44)
--- NOTE | 2019-03-11 01:04 | PDOC ---
Documentation entered by Windy Clarke SCRIBE, acting as scribe for Marlene Ordoñez MD. Marlene Ordoñez MD: This documentation has been prepared by the Vince izquierdo Adrianna, SCRIBE, under my direction and personally reviewed by me in its entirety. I confirm that the documentation accurately reflects all work, treatment, procedures, and medical decision making performed by me. History of Present Illness - General Chief Complaint: SIRS, Suspected/Possible Stated Complaint: FLU LIKE SYMPTOMS Time Seen by Provider: 03/10/19 21:32 - History of Present Illness Initial Comments: The patient is a 78 year old male, with a significant PMH of HTN, BPH, GERD, prostate CA, and OA, who presents to the ED for evaluation of fever since yesterday. Patient reports developing a sudden onset fever yesterday, with associated chills and joint pains. He endorses feeling weak, noting he could not get out of bed. Upon arrival, EMS found a tick attached just distal to the right axilla, which he didnt realize he had and is unsure of how long it has been there. He reports having a dog, [place] Denies any other complaints at this time. Allergies: NKA, NKDA Surgical History: Bilateral hip replacements, cataracts Social History: Former smoker (quit 30 years ago). Denies EtOH or illicit drug use PCP: Dr. Arevalo Past History - Past Medical History Allergies/Adverse Reactions: Allergies Allergy/AdvReac Type Severity Reaction Status Date / Time No Known Allergies Allergy Verified 03/11/19 01:07 Home Medications: Ambulatory Orders Nifedipine [Nifedipine ER] 90 mg PO DAILY 01/15/18 Quinapril HCl [Accupril -] 40 mg PO DAILY 01/15/18 Multivit-Mins/Iron/Folic/Lycop [Centrum Men's Tablet] 1 each PO DAILY 05/15/18 Omeprazole 40 mg PO DAILY 03/11/19 Anemia: No Asthma: No Cancer: Yes (PROSTATE CA- DX 2011-RADIATION- 05/2012) Cardiac Disorders: No CVA: Yes (RIGHT EYE STROKE- 1997) COPD: No CHF: No Dementia: No Diabetes: No GI Disorders: No Disorders: Yes (PROSTATE CA/BPH) HTN: Yes (DX 1997) Hypercholesterolemia: No Liver Disease: No Seizures: No Thyroid Disease: No - Surgical History Abdominal Surgery: No Appendectomy: No Cardiac Surgery: No Cholecystectomy: No Lung Surgery: No Neurologic Surgery: No Orthopedic Surgery: No - Psycho Social/Smoking Cessation Hx Smoking History: Never smoked Have you smoked in the past 12 months: No Number of Cigarettes Smoked Daily: 40 If you are a former smoker, when did you quit?: 1986 Hx Alcohol Use: No Drug/Substance Use Hx: No Substance Use Type: None Hx Substance Use Treatment: No Review of Systems - Review of Systems Comments:: GENERAL/CONSTITUTIONAL: +Fever. +Chills. +Weakness. HEAD, EYES, EARS, NOSE AND THROAT: No change in vision. No ear pain or discharge. No sore throat. CARDIOVASCULAR: No chest pain or shortness of breath. RESPIRATORY: No cough, wheezing, or hemoptysis. GASTROINTESTINAL: No nausea, vomiting, diarrhea or constipation. GENITOURINARY: No dysuria, frequency, or change in urination. MUSCULOSKELETAL: +General joint pains. No neck or back pain. SKIN: +Tick bite to the distal aspect of the right axilla. No rash NEUROLOGIC: No headache, vertigo, loss of consciousness, or change in strength/ sensation. ENDOCRINE: No increased thirst. No abnormal weight change. HEMATOLOGIC/LYMPHATIC: No anemia, easy bleeding, or history of blood clots. ALLERGIC/IMMUNOLOGIC: No hives or skin allergy. *Physical Exam - Vital Signs Last Vital Signs Temp Pulse Resp BP Pulse Ox 104.1 F H 92 H 28 H 142/63 96 03/10/19 21:25 03/10/19 21:25 03/10/19 21:25 03/10/19 21:25 03/10/19 21:25 - Physical Exam Comments: GENERAL: +Generally weak, but conversant. Awake, alert, and fully oriented, in no acute distress HEAD: No signs of trauma EYES: PERRLA, EOMI, sclera anicteric, conjunctiva clear ENT: Auricles normal inspection, hearing grossly normal, nares patent, oropharynx clear without exudates. Moist mucosa NECK: Normal ROM, supple, no lymphadenopathy, JVD, or masses LUNGS: Breath sounds equal, clear to auscultation bilaterally. No wheezes, and no crackles HEART: +Tachycardic.Regular rhythm, normal S1 and S2, no murmurs, rubs or gallops ABDOMEN: +Big, protuberant belly. Soft, nontender, normoactive bowel sounds. No guarding, no rebound. No masses EXTREMITIES: +Pedal edema to the bilateral extremities. Normal range of motion. No clubbing or cyanosis. No cords, erythema, or tenderness NEUROLOGICAL: Cranial nerves II through XII grossly intact. Normal speech, normal gait SKIN: +~5mm tick attached near the right axilla. Warm, Dry, normal turgor, no rashes noted. Heart Score/ECG Review - ECG Intrepretation Comment:: Sinus rhythm with 1st degree AV block. Left axis deviation. Right bundle branch block. Vent rate 87bpm, IN interval 216, QRS duration 150ms, QT/QTc 408/490ms, P-R-T axes 3 -66 49 ED Treatment Course - LABORATORY CBC & Chemistry Diagram: 03/10/19 21:35 03/10/19 21:35 - ADDITIONAL ORDERS Additional order review: Laboratory Results 03/10/19 03/10/19 03/10/19 22:30 21:35 21:35 PT with INR INR PTT (Actin FS) VBG pH 7.10 L* POC VBG pCO2 42.1 POC VBG pO2 84.1 H VBG HCO3 12.5 L VBG O2 Sat (Katerina) 92.0 H VBG Base Excess -16.6 L Sodium Potassium Chloride Carbon Dioxide Anion Gap BUN Creatinine Est GFR (CKD-EPI)AfAm Est GFR (CKD-EPI)NonAf Random Glucose Lactic Acid 1.3 Calcium Total Bilirubin AST ALT Alkaline Phosphatase Troponin I Total Protein Albumin Urine Color Yellow Urine Appearance Clear Urine pH 6.0 Ur Specific [place] 1.015 Urine Protein 2+ H Urine Glucose (UA) Negative Urine Ketones Negative Urine Blood 2+ H Urine Nitrite Negative Urine Bilirubin Negative Urine Urobilinogen 1.0 Ur Leukocyte Esterase 2+ H Urine WBC (Auto) 43 Urine RBC (Auto) 7 Urine Casts (Auto) 7 U Epithel Cells (Auto) 3.7 Urine Bacteria (Auto) 9.8 03/10/19 03/10/19 21:35 21:35 PT with INR 13.50 H INR 1.14 H PTT (Actin FS) 30.2 VBG pH POC VBG pCO2 POC VBG pO2 VBG HCO3 VBG O2 Sat (Katerina) VBG Base Excess Sodium 137 Potassium 3.6 Chloride 106 Carbon Dioxide 22 Anion Gap 9 BUN 22.5 H Creatinine 1.3 Est GFR (CKD-EPI)AfAm 61.00 Est GFR (CKD-EPI)NonAf 52.63 Random Glucose 104 Lactic Acid Calcium 8.3 L Total Bilirubin 0.8 AST 30 ALT 28 Alkaline Phosphatase 81 Troponin I 0.02 Total Protein 7.2 Albumin 3.8 Urine Color Urine Appearance Urine pH Ur Specific [place] Urine Protein Urine Glucose (UA) Urine Ketones Urine Blood Urine Nitrite Urine Bilirubin Urine Urobilinogen Ur Leukocyte Esterase Urine WBC (Auto) Urine RBC (Auto) Urine Casts (Auto) U Epithel Cells (Auto) Urine Bacteria (Auto) 03/10/19 21:35 RBC 3.99 L MCV 91.4 MCHC 33.9 RDW 13.3 MPV 8.3 Neutrophils % 81.8 Lymphocytes % 10.4 D Monocytes % 7.0 Eosinophils % 0.0 D Basophils % 0.8 - RADIOLOGY Radiology Studies Ordered: Category Date Time Status CHEST X-RAY PORTABLE* [RAD] Stat Radiology 03/10/19 21:31 Taken Radiograph Interpretation: CXR demonstrates tortuous aorta (unchanged from last year). No obvious infiltrates (poor study). - Medications Given in the ED: ED Medications Discontinued Medications Generic Name Dose Route Start Last Admin Trade Name Freq PRN Reason Stop Dose Admin Acetaminophen 1,000 mg 03/10/19 21:45 03/10/19 22:31 Ofirmev Injection - IVPB 03/10/19 21:46 1,000 mg ONCE ONE Administration Medical Decision Making - Medical Decision Making 03/11/19 01:05 Patient has complaint of 1 day of fever and joint pain CBC was not well did not show any leukocytosis, no anemia Chest x-ray did not show any acute infiltrates Chemistries were reviewed and were essentially unremarkable UA did show a mild infection and patient was given Rocephin Patient did have a tick embedded near his right axilla and Lyme titers were sent. (Tick removed) There was no classic rash or bull's eye lesion seen 03/11/19 01:19 IMP: Diffuse joint pain,fever 104, UTI, embedded tick blood and urine cultures pending,also Lyme titers sent ADMIT med.surg 03/11/19 01:20 Discharge - Discharge Information Problems reviewed: Yes Clinical Impression/Diagnosis: Systemic inflammatory response syndrome (SIRS) UTI (urinary tract infection) Qualifiers: Urinary tract infection type: site unspecified Hematuria presence: without hematuria Qualified Code(s): N39.0 - Urinary tract infection, site not specified Joint pain Qualifiers: Joint pain location: unspecified Qualified Code(s): M25.50 - Pain in unspecified joint Fever Qualifiers: Fever type: unspecified Qualified Code(s): R50.9 - Fever, unspecified - Admission Yes - Follow up/Referral Referrals: Tiago Arevalo MD [Primary Care Provider] - - Patient Discharge Instructions - Post Discharge Activity
--- NOTE | 2019-03-11 01:50 | PN ---
Teaching Attending Note Name of Resident: Khalida Nance ATTENDING PHYSICIAN STATEMENT I saw and evaluated the patient. I reviewed the resident's note and discussed the case with the resident. I agree with the resident's findings and plan as documented. SUBJECTIVE: Patient is a 78 year old man with a PMH of HTN, BPH, GERD, Bilateral hip replacements, Cataracts, Prostate cancer (2011; s/p radiotherapy) and Osteoarthritis who presents to the ER for evaluation of fever that started yesterday. Patient reports developing a sudden onset fever yesterday, with associated chills and joint pains. He endorses feeling weak, noting he could not get out of bed. Upon arrival, EMS found a tick attached just distal to the right axilla, which he didnt realize he had and is unsure of how long it has been there (EMS didnot take a picture of the tick). He reports having a dog, and [place]. Denies vomiting. SOB, diarrhea, dysuria, chest pain or photophobia. No obvious sick contacts. any other complaints at this time. Did not have severe joint pain during a prior hospitalization for UTI. Denies smoking, alcohol or illicit drug abuse. FH of HTN. OBJECTIVE: Alert Vital Signs Period Temp Pulse Resp BP Sys/Lujan Pulse Ox Last 24 Hr 101.9 F-104.1 F 69-92 17-28 114-142/61-65 95-97 HEENT: No Jaundice, eye redness or discharge, PERRLA, EOMI. Normocephalic, atraumatic. External ears are normal and hearing is grossly intact. No nasal discharge. Neck: Supple, nontender. No palpable adenopathy or thyromegaly. No JVD Chest: Good effort. Clear to auscultation and percussion. Heart: Regular. No S3, rub or murmur Abdomen: Not distended, soft, nontender and no HSM. No rebound or guarding. Normal bowel sounds. Ext: Peripheral pulses intact. No leg edema. No joint swelling or tenderness. Skin: Warm and dry. No petechiae, rash or ecchymosis. Neuro: Alert. Oriented x3. CN 2-12 grossly intact. Sensation grossly intact in all four extremities and DTR are symmetric. Psych: Appropriate mood and affect. Good insight. Home Medications Medication Instructions Recorded Nifedipine [Nifedipine ER] 90 mg PO DAILY 01/15/18 Quinapril HCl [Accupril -] 40 mg PO DAILY 01/15/18 Multivit-Mins/Iron/Folic/Lycop 1 each PO DAILY 05/15/18 [Centrum Men's Tablet] Omeprazole 40 mg PO DAILY 03/11/19 Abnormal Lab Results 03/10/19 03/10/19 03/10/19 21:35 21:35 21:35 RBC 3.99 L PT with INR 13.50 H INR 1.14 H VBG pH POC VBG pO2 VBG HCO3 VBG O2 Sat (Katerina) VBG Base Excess BUN 22.5 H Calcium 8.3 L Urine Protein Urine Blood Ur Leukocyte Esterase 03/10/19 03/10/19 21:35 22:30 RBC PT with INR INR VBG pH 7.10 L* POC VBG pO2 84.1 H VBG HCO3 12.5 L VBG O2 Sat (Katerina) 92.0 H VBG Base Excess -16.6 L BUN Calcium Urine Protein 2+ H Urine Blood 2+ H Ur Leukocyte Esterase 2+ H ASSESSMENT AND PLAN: 1. Sepsis due to UTI - Sepsis workup done. Being treated with IV Rocephin and IV NS. Flu swab is negative and Lyme studies have been sent. CXR shows wide mediastinum but no infiltrates. EKG shows NSR with 1o AV block, LAD and RBBB. Will continue comprehensive care for all of patients comorbid conditions. 2. Obesity Counseled on the risks associated with obesity. Will provide patient all the necessary assistance, counseling and positive reinforcement to facilitate weight loss. Consult varnish finisher. 3. Hypertension - Restart suitable outpatient antihypertensive drugs when clinically appropriate. Revise regimen to ensure [id number] excellent BP control and pre parole counseling aide patient on the injurious effects of uncontrolled hypertension. Nonpharmacologic measures to control hypertension like weight loss , salt restriction and exercise discussed. Importance of adherence to treatment regimen and attainment of normotension emphasized. 4. DVT prophylaxis - Lovenox 40 mg SQ q 24 hours. 5. Advance directives - Full code
[2019-03-11] MEDS ORDERED: SODIUM CHLORIDE 1,000 ML IV STA (04:05)
[2019-03-11 04:55] VITALS: BMI 33.7
--- NOTE | 2019-03-11 05:30 | HP ---
CHIEF COMPLAINT: generalized weakness and fever PCP: Dr Arevalo HISTORY OF PRESENT ILLNESS: 78 y/o male with PMH PMH, HTN , BPH,GERD, prostate CA s/p green light therapy and OA who presents to the ED because of generalized weakness and fever. According the Pt, yesterday around 5 pm he experienced "chills" that lasted a few minutes. Pt went out after then upon his return home, he felt increasingly sleepy, overall weak, and unable to stand on his feet due to the generalized weakness. At that point, pt took his tempature and found it to be elevated to 102 F. At that point he called EMS to bring him to the hospital. EMS found a tick on the R axilla of the patient upon arrival. The patient states he was unaware of tick and is unsure of how long it has been there. The tick was wei in color, not engorged.He denies any focal neurological deficit, loss of consciousness, weakness, parasthesia, bowel/bladder incontinence, dysuria or burning ,joint pain or stiffness or bull eye rash. 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 ER course was notable for: (1) CBC, CMP, UA positive, Pt/INR 13.5/1.14 (2) CXR which was neg for acute pathology (3) urine and blood cultures sent. flu neg, and lyme serology sent Recent Travel: [facility] to [facility] PAST MEDICAL HISTORY: as above PAST SURGICAL HISTORY: B/l hip replacement, green light therapy Family Hx: non contributory Social History: Smoking:denies Alcohol: social drinker Drugs: denies Allergies No Known Allergies Allergy (Verified 03/11/19 01:07) HOME MEDICATIONS: Home Medications Medication Instructions Recorded Nifedipine [Nifedipine ER] 90 mg PO DAILY 01/15/18 Quinapril HCl [Accupril -] 40 mg PO DAILY 01/15/18 Multivit-Mins/Iron/Folic/Lycop 1 each PO DAILY 05/15/18 [Centrum Men's Tablet] Omeprazole 40 mg PO DAILY 03/11/19 REVIEW OF SYSTEMS CONSTITUTIONAL: fever, chills,generalized weakness Absent: diaphoresis, , malaise, loss of appetite, weight change HEENT: Absent: rhinorrhea, nasal congestion, throat pain, throat swelling, difficulty swallowing, mouth swelling, ear pain, eye pain, visual changes CARDIOVASCULAR: Absent: chest pain, syncope, palpitations, irregular heart rate, lightheadedness , peripheral edema RESPIRATORY: Absent: cough, shortness of breath, dyspnea with exertion, orthopnea, wheezing, stridor, hemoptysis GASTROINTESTINAL: Absent: abdominal pain, abdominal distension, nausea, vomiting, diarrhea, constipation, melena, hematochezia GENITOURINARY: Absent: dysuria, frequency, urgency, hesitancy, hematuria, flank pain, genital pain MUSCULOSKELETAL: Absent: myalgia, arthralgia, joint swelling, back pain, neck pain SKIN: Absent: rash, itching, pallor HEMATOLOGIC/IMMUNOLOGIC: Absent: easy bleeding, easy bruising, lymphadenopathy, frequent infections ENDOCRINE: Absent: unexplained weight gain, unexplained weight loss, heat intolerance, cold intolerance NEUROLOGIC: Absent: headache, focal weakness or paresthesias, dizziness, unsteady gait, seizure, mental status changes, bladder or bowel incontinence PSYCHIATRIC: Absent: anxiety, depression, suicidal or homicidal ideation, hallucinations. PHYSICAL EXAMINATION Vital Signs - 24 hr 03/10/19 03/10/19 03/10/19 21:25 21:47 23:41 Temperature 104.1 F H 104.1 F H 101.9 F H Pulse Rate 92 H Pulse Rate [ 81 Left Radial] Respiratory 28 H 17 Rate Blood Pressure 142/63 Blood Pressure 116/61 [Right Arm] O2 Sat by Pulse 96 97 Oximetry (%) 03/11/19 03/11/19 03/11/19 00:00 01:00 02:01 Temperature 100.3 F H Pulse Rate 92 H Pulse Rate [ 74 69 Left Radial] Respiratory 20 19 18 Rate Blood Pressure 141/64 Blood Pressure 114/61 115/65 [Right Arm] O2 Sat by Pulse 95 95 96 Oximetry (%) GENERAL: Awake, alert, and fully oriented, in no acute distress. HEAD: Normal with no signs of trauma. EYES: Pupils equal, round and reactive to light, extraocular movements intact, sclera anicteric, conjunctiva clear. No lid lag. EARS, NOSE, THROAT: oropharynx clear without exudates. Moist mucous membranes. NECK: Normal range of motion, supple without lymphadenopathy, JVD, or masses. LUNGS: Breath sounds equal, clear to auscultation bilaterally. No wheezes, and no crackles. No accessory muscle use. HEART: Regular rate and rhythm, normal S1 and S2 without murmur, rub or gallop. ABDOMEN: Soft, nontender, obese, normoactive bowel sounds, no guarding, no rebound, no masses. No hepatomegaly or splenomegaly. MUSCULOSKELETAL: Normal range of motion at all joints. No bony deformities or tenderness. No CVA tenderness. UPPER EXTREMITIES: 2+ pulses, warm, well-perfused. No cyanosis. No clubbing. No peripheral edema. LOWER EXTREMITIES: 2+ pulses, warm, well-perfused. No calf tenderness. No peripheral edema. NEUROLOGICAL: Cranial nerves II-XII intact. Normal speech. motor 5/5 in all muscle groups and sensation intact PSYCHIATRIC: Cooperative. Good eye contact. Appropriate mood and affect. Laboratory Results - last 24 hr 03/10/19 03/10/19 03/10/19 21:35 21:35 21:35 WBC 4.1 RBC 3.99 L Hgb 12.4 Hct 36.5 MCV 91.4 MCH 31.0 MCHC 33.9 RDW 13.3 Plt Count 170 D MPV 8.3 Absolute Neuts (auto) 3.3 Neutrophils % 81.8 Lymphocytes % 10.4 D Monocytes % 7.0 Eosinophils % 0.0 D Basophils % 0.8 Nucleated RBC % 0 PT with INR 13.50 H INR 1.14 H PTT (Actin FS) 30.2 VBG pH POC VBG pCO2 POC VBG pO2 VBG HCO3 VBG O2 Sat (Katerina) VBG Base Excess Sodium 137 Potassium 3.6 Chloride 106 Carbon Dioxide 22 Anion Gap 9 BUN 22.5 H Creatinine 1.3 Est GFR (CKD-EPI)AfAm 61.00 Est GFR (CKD-EPI)NonAf 52.63 Random Glucose 104 Lactic Acid Calcium 8.3 L Total Bilirubin 0.8 AST 30 ALT 28 Alkaline Phosphatase 81 Troponin I 0.02 Total Protein 7.2 Albumin 3.8 Urine Color Urine Appearance Urine pH Ur Specific [place] Urine Protein Urine Glucose (UA) Urine Ketones Urine Blood Urine Nitrite Urine Bilirubin Urine Urobilinogen Ur Leukocyte Esterase Urine WBC (Auto) Urine RBC (Auto) Urine Casts (Auto) U Epithel Cells (Auto) Urine Bacteria (Auto) Influenza A (Rapid) Influenza B (Rapid) 03/10/19 03/10/19 03/10/19 21:35 21:35 22:30 WBC RBC Hgb Hct MCV MCH MCHC RDW Plt Count MPV Absolute Neuts (auto) Neutrophils % Lymphocytes % Monocytes % Eosinophils % Basophils % Nucleated RBC % PT with INR INR PTT (Actin FS) VBG pH 7.10 L* POC VBG pCO2 42.1 POC VBG pO2 84.1 H VBG HCO3 12.5 L VBG O2 Sat (Katerina) 92.0 H VBG Base Excess -16.6 L Sodium Potassium Chloride Carbon Dioxide Anion Gap BUN Creatinine Est GFR (CKD-EPI)AfAm Est GFR (CKD-EPI)NonAf Random Glucose Lactic Acid 1.3 Calcium Total Bilirubin AST ALT Alkaline Phosphatase Troponin I Total Protein Albumin Urine Color Yellow Urine Appearance Clear Urine pH 6.0 Ur Specific [place] 1.015 Urine Protein 2+ H Urine Glucose (UA) Negative Urine Ketones Negative Urine Blood 2+ H Urine Nitrite Negative Urine Bilirubin Negative Urine Urobilinogen 1.0 Ur Leukocyte Esterase 2+ H Urine WBC (Auto) 43 Urine RBC (Auto) 7 Urine Casts (Auto) 7 U Epithel Cells (Auto) 3.7 Urine Bacteria (Auto) 9.8 Influenza A (Rapid) Influenza B (Rapid) 03/10/19 23:29 WBC RBC Hgb Hct MCV MCH MCHC RDW Plt Count MPV Absolute Neuts (auto) Neutrophils % Lymphocytes % Monocytes % Eosinophils % Basophils % Nucleated RBC % PT with INR INR PTT (Actin FS) VBG pH POC VBG pCO2 POC VBG pO2 VBG HCO3 VBG O2 Sat (Katerina) VBG Base Excess Sodium Potassium Chloride Carbon Dioxide Anion Gap BUN Creatinine Est GFR (CKD-EPI)AfAm Est GFR (CKD-EPI)NonAf Random Glucose Lactic Acid Calcium Total Bilirubin AST ALT Alkaline Phosphatase Troponin I Total Protein Albumin Urine Color Urine Appearance Urine pH Ur Specific [place] Urine Protein Urine Glucose (UA) Urine Ketones Urine Blood Urine Nitrite Urine Bilirubin Urine Urobilinogen Ur Leukocyte Esterase Urine WBC (Auto) Urine RBC (Auto) Urine Casts (Auto) U Epithel Cells (Auto) Urine Bacteria (Auto) Influenza A (Rapid) Negative Influenza B (Rapid) Negative ASSESSMENT/PLAN: 78 y/o male with PMH PMH, HTN , BPH,GERD, prostate CA s/p green light therapy and OA who presents to the ED because of generalized weakness and fever. sepsis 2/2 UTI sepsis work up done; urine , blood cultures sent cont ceftriaxone 1L NS bolus. maintenance with NS @100 monitor vital signs Tick bite r/o lyme tick was atypical for lyme per ED description. tick was wei, non engorged. no rash, or joint pain/facial palsy EKG shows NSR with 1o AV block, LAD and RBBB. lyme serology sent HTN resume home meds once med rec GERD cont home protonix once med rec DVT lovenox daily Visit type - Emergency Visit Emergency Visit: Yes ED Registration Date: 03/11/19 Care time: The patient presented to the Emergency Department on the above date and was hospitalized for further evaluation of their emergent condition. - New Patient This patient is new to me today: Yes Date on this admission: 03/11/19 - Critical Care Critical Care patient: No ATTENDING PHYSICIAN STATEMENT I saw and evaluated the patient. I reviewed the resident's note and discussed the case with the resident. I agree with the resident's findings and plan as documented. SUBJECTIVE: OBJECTIVE: ASSESSMENT AND PLAN:
[2019-03-11] MEDS ORDERED: CEFTRIAXONE 1,000 MG in DEXTROSE 5%-WATER - 50 ML IVPB ONE (06:53)
[2019-03-11] MEDS: SODIUM CHLORIDE 1,000 ML IV SCH ×2 (06:57→20:09)
[2019-03-11] MEDS ORDERED: ACETAMINOPHEN 1000 MG/100 ML VIAL (NON FORMULARY) IVPB ONE ×2 (07:10→12:40)
[2019-03-11 08:42] LABS: BASO % 0.9 % (0-2.0); HEMATOCRIT 31.9 % (35.4-49); LYMPH % 9.9 % (8-40); MCH 31.1 pg (25.7-33.7); MCHC 34.6 g/dl (32.0-35.9); MEAN PLT VOLUME 8.2 fl (7.5-11.1); MONO % 4.6 % (3.8-10.2); NEUT % 84.6 % (42.8-82.8); PLATELET COUNT 130 K/MM3 (134-434); RBC 3.54 M/mm3 (4.00-5.60); WHITE BLOOD COUNT 3.9 K/mm3 (4.0-10.0)
[2019-03-11 09:31] LABS: ALBUMIN 3.1 g/dl (3.4-5.0); BILIRUBIN,TOTAL 0.7 mg/dL (0.2-1); BLOOD UREA NITROGEN 16.3 mg/dL (7-18); CALCIUM 7.8 mg/dL (8.5-10.1); MAGNESIUM 1.7 mg/dL (1.8-2.4); POTASSIUM 3.3 mmol/L (3.5-5.1); TOT PROT 6.1 g/dl (6.4-8.2)
[2019-03-11] MEDS: ENOXAPARIN NA (PORCINE) 40 MG/0.4 ML DISP.SYRIN SQ SCH (10:15)
--- NOTE | 2019-03-11 12:11 | EKG ---
Test Reason : Blood Pressure : / mmHG Vent. Rate : 087 BPM Atrial Rate : 087 BPM P-R Int : 216 ms QRS Dur : 150 ms QT Int : 408 ms P-R-T Axes : 003 -66 049 degrees QTc Int : 490 ms SINUS RHYTHM WITH 1ST DEGREE A-V BLOCK LEFT AXIS DEVIATION RIGHT BUNDLE BRANCH BLOCK ABNORMAL ECG WHEN COMPARED WITH ECG OF 15-JAN-2018 15:17, PREMATURE ATRIAL COMPLEXES ARE NO LONGER PRESENT RIGHT BUNDLE BRANCH BLOCK HAS REPLACED NON-SPECIFIC INTRA-VENTRICULAR CONDUCTION DELAY Confirmed by BASIL RAMIREZ, HANNAH ([id number]) on 03/11/2019 12:10:36 PM Referred By: Confirmed By:HANNAH GRACIA MD
[2019-03-11] MEDS ORDERED: POTASSIUM CHLORIDE ORAL LIQUID 20 MEQ/15 ML PO ONE (13:22)
[2019-03-11] MEDS ORDERED: MAGNESIUM SULF 50% (8.12 MEQ/2 ML-1 GM VIAL) IVPB ONE (13:23)
--- NOTE | 2019-03-11 13:37 | CON.ID ---
Consult Consult Specialty:: infectious diseases Referred by:: Tayla Reason for Consultation:: fever,chills - History of Present Illness Chief Complaint: chills fever History of Present Illness: 78 year old male, with a significant PMH of HTN, BPH, GERD, prostate CA, and OA, admitted for fever and chills Patient reports developing a sudden onset fever yesterday, with associated chills and joint pains. He endorses feeling weak, noting he could not get out of bed. Upon arrival, EMS found a tick attached just distal to the right axilla , which he didnt realize he had and is unsure of how long it has been there. He reports having a dog, [place] Denies any other complaints at this time. currently spiking fever - History Source History Provided By: Patient Limitations to Obtaining History: No Limitations - Past Medical History Cardio/Vascular: Yes: HTN Renal/: Yes: BPH (overactive bladder) Musculoskeletal: Yes: Osteoarthritis - Alcohol/Substance Use Hx Alcohol Use: No - Smoking History Smoking history: Never smoked Have you smoked in the past 12 months: No Aproximately how many cigarettes per day: 40 If you are a former smoker, when did you quit?: 1986 Home Medications - Allergies Allergies/Adverse Reactions: Allergies Allergy/AdvReac Type Severity Reaction Status Date / Time No Known Allergies Allergy Verified 03/11/19 01:07 - Home Medications Home Medications: Ambulatory Orders Nifedipine [Nifedipine ER] 90 mg PO DAILY 01/15/18 Quinapril HCl [Accupril -] 40 mg PO DAILY 01/15/18 Multivit-Mins/Iron/Folic/Lycop [Centrum Men's Tablet] 1 each PO DAILY 05/15/18 Omeprazole 40 mg PO DAILY 03/11/19 Review of Systems - Review of Systems Constitutional: reports: Chills, Fever, Weakness Eyes: reports: No Symptoms HENT: reports: No Symptoms Neck: reports: No Symptoms Cardiovascular: reports: No Symptoms Respiratory: reports: No Symptoms Gastrointestinal: reports: No Symptoms Genitourinary: reports: No Symptoms Musculoskeletal: reports: No Symptoms Integumentary: reports: No Symptoms Neurological: reports: No Symptoms Endocrine: reports: No Symptoms Hematology/Lymphatic: reports: No Symptoms Psychiatric: reports: No Symptoms Physical Exam Vital Signs: Vital Signs Temperature 102.9 F H 03/11/19 12:35 Pulse Rate 84 03/11/19 10:00 Respiratory Rate 18 03/11/19 10:00 Blood Pressure 124/64 03/11/19 10:00 O2 Sat by Pulse Oximetry (%) 96 03/11/19 09:00 Constitutional: Yes: Calm, Mild Distress, Other (weak) Eyes: Yes: Conjunctiva Clear HENT: Yes: Atraumatic, Normocephalic Cardiovascular: Yes: Regular Rate and Rhythm Respiratory: Yes: Regular, CTA Bilaterally Gastrointestinal: Yes: Normal Bowel Sounds, Soft Musculoskeletal: Yes: WNL Extremities: Yes: WNL Neurological: Yes: Alert, Oriented Psychiatric: Yes: Alert, Oriented Labs: CBC, BMP 03/11/19 07:39 03/11/19 07:39 Imaging - Results Chest X-ray: Report Reviewed, Image Reviewed Assessment/Plan patient with multiple medical problems coming to the hospital with fever and chills and also found to have a tick bite i have send blood work for babesia /ehrlichia will start patient on doxy monitor fevers rest as per the team
[2019-03-11 14:47] LABS: ARTERIAL BLD GAS O2 SATURATION 93.5 % (95-98); ARTERIAL BLOOD GAS PCO2 29.4 mmHg (35-45); ARTERIAL BLOOD GAS PO2 65.3 mmHg (80-100); ARTERIAL BLOOD GAS pH 7.44 (7.35-7.45)
[2019-03-11 14:48] LABS: ALLENS TEST POSITIVE
--- NOTE | 2019-03-11 14:54 | PN ---
Physical Exam: SUBJECTIVE: Patient seen and examined at the bedside. patient reports malaise, weakness. 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 He presents to the ED on 03/11/2019 with generalized weakness and fever. Yesterday around 5 pm he experienced "chills" that lasted a few minutes and he felt increasingly sleepy, overall weak , and unable to stand on his feet due to the generalized weakness. He reports high fevers of 102F at home. EMS found a tick on the right axilla of the patient upon arrival. The patient states he was unaware of tick and is unsure of how long it has been there. The tick was wei in color and was removed in the ED. Vital Signs Period Temp Pulse Resp BP Sys/Lujan Pulse Ox Last 24 Hr 99.6 F-104.1 F 69-92 17-28 114-155/61-74 95-97 GENERAL: The patient is awake, alert, and fully oriented, in no acute distress. HEAD: Normal with no signs of trauma. EYES: PERRL, extraocular movements intact, sclera anicteric, conjunctiva clear. No ptosis. ENT: Ears normal, nares patent, oropharynx clear without exudates, moist mucous membranes. NECK: Trachea midline, full range of motion, supple. LUNGS: Breath sounds equal, clear to auscultation bilaterally, no wheezes HEART: Regular rate and rhythm ABDOMEN: Soft, nontender, nondistended, normoactive bowel sounds, no guarding, no rebound, no hepatosplenomegaly, no masses. EXTREMITIES: no edema. NEUROLOGICAL: Normal speech, gait not observed. Laboratory Results - last 24 hr 03/10/19 03/10/19 03/10/19 21:35 21:35 21:35 WBC 4.1 RBC 3.99 L Hgb 12.4 Hct 36.5 MCV 91.4 MCH 31.0 MCHC 33.9 RDW 13.3 Plt Count 170 D MPV 8.3 Absolute Neuts (auto) 3.3 Neutrophils % 81.8 Lymphocytes % 10.4 D Monocytes % 7.0 Eosinophils % 0.0 D Basophils % 0.8 Nucleated RBC % 0 PT with INR 13.50 H INR 1.14 H PTT (Actin FS) 30.2 Anticoagulation Therapy Puncture Site ABG pH ABG pCO2 at Pt Temp ABG pO2 at Pt Temp ABG HCO3 ABG O2 Sat (Measured) ABG O2 Content ABG Base Excess Cornelius Test VBG pH POC VBG pCO2 POC VBG pO2 VBG HCO3 VBG O2 Sat (Katerina) VBG Base Excess O2 Delivery Device Oxygen Flow Rate Vent Mode Vent Rate Mechanical Rate Pressure Support Vent Sodium 137 Potassium 3.6 Chloride 106 Carbon Dioxide 22 Anion Gap 9 BUN 22.5 H Creatinine 1.3 Est GFR (CKD-EPI)AfAm 61.00 Est GFR (CKD-EPI)NonAf 52.63 Random Glucose 104 Lactic Acid Calcium 8.3 L Phosphorus Magnesium Total Bilirubin 0.8 AST 30 ALT 28 Alkaline Phosphatase 81 Troponin I 0.02 Total Protein 7.2 Albumin 3.8 TSH Urine Color Urine Appearance Urine pH Ur Specific [place] Urine Protein Urine Glucose (UA) Urine Ketones Urine Blood Urine Nitrite Urine Bilirubin Urine Urobilinogen Ur Leukocyte Esterase Urine WBC (Auto) Urine RBC (Auto) Urine Casts (Auto) U Epithel Cells (Auto) Urine Bacteria (Auto) Influenza A (Rapid) Influenza B (Rapid) 03/10/19 03/10/19 03/10/19 21:35 21:35 22:30 WBC RBC Hgb Hct MCV MCH MCHC RDW Plt Count MPV Absolute Neuts (auto) Neutrophils % Lymphocytes % Monocytes % Eosinophils % Basophils % Nucleated RBC % PT with INR INR PTT (Actin FS) Anticoagulation Therapy Puncture Site ABG pH ABG pCO2 at Pt Temp ABG pO2 at Pt Temp ABG HCO3 ABG O2 Sat (Measured) ABG O2 Content ABG Base Excess Cornelius Test VBG pH 7.10 L* POC VBG pCO2 42.1 POC VBG pO2 84.1 H VBG HCO3 12.5 L VBG O2 Sat (Katerina) 92.0 H VBG Base Excess -16.6 L O2 Delivery Device Oxygen Flow Rate Vent Mode Vent Rate Mechanical Rate Pressure Support Vent Sodium Potassium Chloride Carbon Dioxide Anion Gap BUN Creatinine Est GFR (CKD-EPI)AfAm Est GFR (CKD-EPI)NonAf Random Glucose Lactic Acid 1.3 Calcium Phosphorus Magnesium Total Bilirubin AST ALT Alkaline Phosphatase Troponin I Total Protein Albumin TSH Urine Color Yellow Urine Appearance Clear Urine pH 6.0 Ur Specific [place] 1.015 Urine Protein 2+ H Urine Glucose (UA) Negative Urine Ketones Negative Urine Blood 2+ H Urine Nitrite Negative Urine Bilirubin Negative Urine Urobilinogen 1.0 Ur Leukocyte Esterase 2+ H Urine WBC (Auto) 43 Urine RBC (Auto) 7 Urine Casts (Auto) 7 U Epithel Cells (Auto) 3.7 Urine Bacteria (Auto) 9.8 Influenza A (Rapid) Influenza B (Rapid) 03/10/19 03/11/19 03/11/19 23:29 07:39 07:39 WBC 3.9 L RBC 3.54 L Hgb 11.0 L Hct 31.9 L MCV 90.0 MCH 31.1 MCHC 34.6 RDW 13.0 Plt Count 130 L D MPV 8.2 Absolute Neuts (auto) 3.3 Neutrophils % 84.6 H Lymphocytes % 9.9 Monocytes % 4.6 Eosinophils % 0.0 Basophils % 0.9 Nucleated RBC % 0 PT with INR INR PTT (Actin FS) Anticoagulation Therapy Puncture Site ABG pH ABG pCO2 at Pt Temp ABG pO2 at Pt Temp ABG HCO3 ABG O2 Sat (Measured) ABG O2 Content ABG Base Excess Cornelius Test VBG pH POC VBG pCO2 POC VBG pO2 VBG HCO3 VBG O2 Sat (Katerina) VBG Base Excess O2 Delivery Device Oxygen Flow Rate Vent Mode Vent Rate Mechanical Rate Pressure Support Vent Sodium 137 Potassium 3.3 L Chloride 108 H Carbon Dioxide 21 Anion Gap 9 BUN 16.3 Creatinine 1.0 Est GFR (CKD-EPI)AfAm 83.77 Est GFR (CKD-EPI)NonAf 72.28 Random Glucose 88 Lactic Acid Calcium 7.8 L Phosphorus 2.0 L Magnesium 1.7 L Total Bilirubin 0.7 AST 38 H ALT 27 Alkaline Phosphatase 64 Troponin I Total Protein 6.1 L Albumin 3.1 L TSH 0.20 L Urine Color Urine Appearance Urine pH Ur Specific [place] Urine Protein Urine Glucose (UA) Urine Ketones Urine Blood Urine Nitrite Urine Bilirubin Urine Urobilinogen Ur Leukocyte Esterase Urine WBC (Auto) Urine RBC (Auto) Urine Casts (Auto) U Epithel Cells (Auto) Urine Bacteria (Auto) Influenza A (Rapid) Negative Influenza B (Rapid) Negative 03/11/19 14:28 WBC RBC Hgb Hct MCV MCH MCHC RDW Plt Count MPV Absolute Neuts (auto) Neutrophils % Lymphocytes % Monocytes % Eosinophils % Basophils % Nucleated RBC % PT with INR INR PTT (Actin FS) Anticoagulation Therapy No Result Required. Puncture Site Right radial ABG pH 7.44 ABG pCO2 at Pt Temp 29.4 L ABG pO2 at Pt Temp 65.3 L ABG HCO3 19.8 L ABG O2 Sat (Measured) 93.5 L ABG O2 Content 13.6 ABG Base Excess -3.0 L Cornelius Test Positive VBG pH POC VBG pCO2 POC VBG pO2 VBG HCO3 VBG O2 Sat (Katerina) VBG Base Excess O2 Delivery Device Room air Oxygen Flow Rate 21% Vent Mode No Result Required. Vent Rate No Result Required. Mechanical Rate No Result Required. Pressure Support Vent No Result Required. Sodium Potassium Chloride Carbon Dioxide Anion Gap BUN Creatinine Est GFR (CKD-EPI)AfAm Est GFR (CKD-EPI)NonAf Random Glucose Lactic Acid Calcium Phosphorus Magnesium Total Bilirubin AST ALT Alkaline Phosphatase Troponin I Total Protein Albumin TSH Urine Color Urine Appearance Urine pH Ur Specific [place] Urine Protein Urine Glucose (UA) Urine Ketones Urine Blood Urine Nitrite Urine Bilirubin Urine Urobilinogen Ur Leukocyte Esterase Urine WBC (Auto) Urine RBC (Auto) Urine Casts (Auto) U Epithel Cells (Auto) Urine Bacteria (Auto) Influenza A (Rapid) Influenza B (Rapid) Active Medications Generic Name Dose Route Start Last Admin Trade Name Freq PRN Reason Stop Dose Admin Acetaminophen 650 mg 03/11/19 12:40 Tylenol - PO Q6H PRN FEVER Enoxaparin Sodium 40 mg 03/11/19 10:00 03/11/19 10:15 Lovenox - SQ 40 mg DAILY MARIANNE Administration Sodium Chloride 1,000 mls @ 100 mls/hr 03/11/19 04:15 03/11/19 06:57 Normal Saline - IV 100 mls/hr ASDIR MARIANNE Administration Doxycycline Hyclate 100 mg/ 100 mls @ 100 mls/hr 03/11/19 13:45 Dextrose IVPB BID MARIANNE Ceftriaxone Sodium 1 gm/ 50 mls @ 100 mls/hr 03/12/19 10:00 Dextrose IVPB DAILY MARIANNE Protocol ASSESSMENT/PLAN: Problem List - Problems (1) Fever Assessment/Plan: fever of unknown origin, being ruled out for tick borne illness vs pneumonia vs other source meets sepsis criteria on admission blood and urine cultures pending on doxy and ceftriaxone pending cultures and lymes serology, ID also sent blood work for babesia/ehrlichia tylenol prn Pulmonary following, chest ct pending Code(s): R50.9 - FEVER, UNSPECIFIED Qualifiers: Fever type: unspecified Qualified Code(s): R50.9 - Fever, unspecified (2) Joint pain Assessment/Plan: physical therapy Code(s): M25.50 - PAIN IN UNSPECIFIED JOINT Qualifiers: Joint pain location: unspecified Qualified Code(s): M25.50 - Pain in unspecified joint (3) Systemic inflammatory response syndrome (SIRS) Code(s): R65.10 - SIRS OF NON-INFECTIOUS ORIGIN W/O ACUTE ORGAN DYSFUNCTION (4) UTI (urinary tract infection) Assessment/Plan: started on ceftriaxone 1mg for + UTI. urine culture pending Code(s): N39.0 - URINARY TRACT INFECTION, SITE NOT SPECIFIED Qualifiers: Urinary tract infection type: site unspecified Hematuria presence: without hematuria Qualified Code(s): N39.0 - Urinary tract infection, site not specified (5) ANNELIESE (acute kidney injury) Assessment/Plan: monitor daily Code(s): N17.9 - ACUTE KIDNEY FAILURE, UNSPECIFIED (6) Osteoarthritis of left hip Assessment/Plan: for physical therapy bilateral hip replacement in May 2017 and May 2018 Code(s): M16.12 - UNILATERAL PRIMARY OSTEOARTHRITIS, LEFT HIP (7) Osteoarthritis of right hip Assessment/Plan: bilateral hip replacement in May 2017 and May 2018 Code(s): M16.11 - UNILATERAL PRIMARY OSTEOARTHRITIS, RIGHT HIP (8) BPH (benign prostatic hyperplasia) Assessment/Plan: monitor urine output Code(s): N40.0 - BENIGN PROSTATIC HYPERPLASIA WITHOUT LOWER URINRY TRACT SYMP (9) HTN (hypertension) Assessment/Plan: holding cardiac medications in the setting of sepsis. Code(s): I10 - ESSENTIAL (PRIMARY) HYPERTENSION Visit type - Emergency Visit Emergency Visit: Yes ED Registration Date: 03/11/19 Care time: The patient presented to the Emergency Department on the above date and was hospitalized for further evaluation of their emergent condition. - New Patient This patient is new to me today: Yes Date on this admission: 03/12/19 - Critical Care Critical Care patient: No - Discharge Referral Referred to [facility] Med P.C.: No
--- NOTE | 2019-03-11 15:05 | PN ---
Progress Note (short form) - Note Progress Note: PULMONARY CONSULTATION DICTATED 03/11/19 IMP FEVER ? ,?PNEUMONIA,?TICK BORN ILLNESS HTN GERD PROSTATE CA OA ANEMIA/THROMBOCYOPENIA PLAN ABX PER ID CHEST CT CULTURES SEROLOGY MONITOR CBC,PLT CT DR CHEUNG Problem List - Problems (1) Fever Code(s): R50.9 - FEVER, UNSPECIFIED Qualifiers: Fever type: unspecified Qualified Code(s): R50.9 - Fever, unspecified (2) Joint pain Code(s): M25.50 - PAIN IN UNSPECIFIED JOINT Qualifiers: Joint pain location: unspecified Qualified Code(s): M25.50 - Pain in unspecified joint (3) Osteoarthritis of left hip Code(s): M16.12 - UNILATERAL PRIMARY OSTEOARTHRITIS, LEFT HIP (4) Osteoarthritis of right hip Code(s): M16.11 - UNILATERAL PRIMARY OSTEOARTHRITIS, RIGHT HIP (5) HTN (hypertension) Code(s): I10 - ESSENTIAL (PRIMARY) HYPERTENSION
[2019-03-11] MEDS ORDERED: PT OWN MED DRAWER 7, Y5N ONE ×2 (16:04→21:14)
--- NOTE | 2019-03-11 16:09 | CONS ---
PULMONARY CONSULTATION DATE OF CONSULTATION: 03/11/2019 REFERRING PHYSICIAN: Sofia Coats NP HISTORY OF PRESENT ILLNESS: The patient is a 78-year-old, white male, with a past medical history of prostate CA status post RT, hypertension, BPH, bilateral hip replacements, cataract surgery, osteoarthritis, history of tobacco use approximately 2 packs per day for approximately 20 years (quit in ), admitted to [facility] with complaint of sudden onset of fever, associated chills, and joint pains. Patient states on the day prior to admission, he was feeling well until the above symptoms. He states that over the course of the day, he had progressive weakness and was unable to get out of bed. EMS was called. The patient was transferred to [facility] ER. Of note is that EMS found a tick attached to his distal right axilla. He also has a dog. He denies any shortness of breath, cough or hemoptysis. Denies any weight loss or night sweats. PAST MEDICAL HISTORY: Again, includes hypertension, BPH, GERD, bilateral hip replacements, cataracts, prostate CA, and osteoarthritis. REVIEW OF SYSTEMS: Positive fever. Positive chills. Positive weakness. No chest pain. No palpitations. No nausea. No vomiting. CURRENT MEDICATIONS: Include Tylenol, ceftriaxone, doxycycline, Lovenox, and normal saline. SOCIAL HISTORY: History of smoking. Previously worked in finance. No occupational exposures. PHYSICAL EXAMINATION: General: On physical examination, the patient is a well-developed, well- nourished male, awake, alert, in no acute distress. Vital Signs: T-maximum is 103, currently 102.9. Blood pressure 124/64, respiratory rate is 18, O2 saturation is 93% on 2 L. HEENT: Exam is normocephalic, atraumatic. Neck: Supple without adenopathy. Heart: Regular S1 and S2. Chest: Clear. Abdomen: Soft. Bowel sounds are positive. Extremities: No cyanosis, edema. LABORATORIES: Blood gas: PH 7.44, PCO2 of 29, a PO2 of 65, bicarbonate of 19, and saturation 93.5. Of note is the initial VBG was 7.10, PCO2 of 42, a PO2 of 84, a bicarbonate of 12, and a saturation of 92. WBC is 3.9, hemoglobin 11, hematocrit 31.9, with a platelet count of 130,000. INR is 1.14. Chemistry: BUN 16, creatinine 1.0. TSH 0.20. UA: Protein 2+, heme 2+, leukocyte esterase 2+, nitrites negative. Chest x-ray: Poor inspiratory effort; questionable mild increased markings at the right base. IMPRESSION: 1. Fever. Etiology to be determined. Rule out possible urinary tract infection. Rule out possible pneumonia. Rule out possible tick-borne illness. 2. Hypertension. 3. Gastroesophageal reflux disease. 4. History of prostate CA. 5. Osteoarthritis. 6. Anemia, thrombocytopenia. PLAN: Antibiotics, as per Infectious Disease. Obtain cultures, tick serology. Obtain CT scan of the chest to rule out possible underlying pneumonia. Monitor CBC, platelet count. IV fluids. ISAAC CHEUNG M.D. [id number] MTDD
[2019-03-11] MEDS: DOXYCYCLINE INJECTION 100 MG in DEXTROSE 5%-WATER - 100 ML IVPB SCH (16:15)
[2019-03-11] MEDS: ACETAMINOPHEN 325 MG TABLET (FP) PO PRN (17:47)
[2019-03-12] MEDS: DOXYCYCLINE INJECTION 100 MG in DEXTROSE 5%-WATER - 100 ML IVPB SCH ×3 (00:05→21:56)
[2019-03-12] MEDS: ACETAMINOPHEN 325 MG TABLET (FP) PO PRN (01:13)
[2019-03-12] MEDS: SODIUM CHLORIDE 1,000 ML IV SCH ×2 (06:32→06:33)
[2019-03-12] MEDS ORDERED: PT OWN MED DRAWER 7, Y5N ONE ×2 (10:00→14:23)
[2019-03-12] MEDS ORDERED: DEXTROSE 5%-WATER - 50 ML IVPB ONE (10:00)
[2019-03-12] MEDS ORDERED: cefTRIAXone SODIUM 1 GM VIAL ONE (10:00)
[2019-03-12] MEDS: ENOXAPARIN NA (PORCINE) 40 MG/0.4 ML DISP.SYRIN SQ SCH (10:07)
[2019-03-12] MEDS: CEFTRIAXONE 1 GM in DEXTROSE 5%-WATER - 50 ML IVPB SCH (10:08)
[2019-03-12 10:14] LABS: ALBUMIN 2.9 g/dl (3.4-5.0); BILIRUBIN,TOTAL 0.7 mg/dL (0.2-1); BLOOD UREA NITROGEN 14.8 mg/dL (7-18); CALCIUM 7.8 mg/dL (8.5-10.1); MAGNESIUM 2.2 mg/dL (1.8-2.4); POTASSIUM 3.8 mmol/L (3.5-5.1); TOT PROT 5.9 g/dl (6.4-8.2)
[2019-03-12 10:22] LABS: BASO % 1.1 % (0-2.0); EOS % 0.1 % (0-4.5); HEMATOCRIT 34.8 % (35.4-49); HEMOGLOBIN 11.9 GM/dL (11.7-16.9); LYMPH % 25.5 % (8-40); MCHC 34.1 g/dl (32.0-35.9); MEAN CELL VOLUME 90.8 fl (80-96); MEAN PLT VOLUME 8.5 fl (7.5-11.1); MONO % 9.5 % (3.8-10.2); NEUT % 63.8 % (42.8-82.8); PLATELET COUNT 78 K/MM3 (134-434); RBC 3.84 M/mm3 (4.00-5.60); RDW 13.4 % (11.9-15.9)
--- NOTE | 2019-03-12 10:43 | PN ---
Progress Note, Physician History of Present Illness: still spiking fevers no new issues - Current Medication List Current Medications: Active Medications Acetaminophen (Tylenol -) 650 mg PO Q6H PRN PRN Reason: FEVER Last Admin: 03/12/19 01:13 Dose: 650 mg Enoxaparin Sodium (Lovenox -) 40 mg SQ DAILY [facility] Last Admin: 03/12/19 10:07 Dose: 40 mg Sodium Chloride (Normal Saline -) 1,000 mls @ 100 mls/hr IV ASDIR [facility] Last Admin: 03/12/19 06:33 Dose: 100 mls/hr Doxycycline Hyclate 100 mg/ (Dextrose) 100 mls @ 100 mls/hr IVPB BID [facility] Last Admin: 03/12/19 10:09 Dose: 100 mls/hr Ceftriaxone Sodium 1 gm/ (Dextrose) 50 mls @ 100 mls/hr IVPB DAILY [facility]; Protocol Last Admin: 03/12/19 10:08 Dose: 100 mls/hr - Objective Vital Signs: Vital Signs Temperature 97.9 F 03/12/19 08:41 Pulse Rate 67 03/12/19 08:41 Respiratory Rate 16 03/12/19 08:41 Blood Pressure 155/83 03/12/19 08:41 O2 Sat by Pulse Oximetry (%) 93 L 03/11/19 21:00 Constitutional: Yes: No Distress, Calm Cardiovascular: Yes: S1, S2 Respiratory: Yes: Regular, CTA Bilaterally Gastrointestinal: Yes: Normal Bowel Sounds, Soft Musculoskeletal: Yes: WNL Extremities: Yes: WNL Neurological: Yes: Alert, Oriented Psychiatric: Yes: Alert, Oriented Labs: CBC, BMP 03/12/19 07:35 03/12/19 07:35 INR, PTT INR 1.14 (0.83-1.09) H 03/10/19 21:35 Assessment/Plan continue current abx await for ct scan result rest as per the team will see what the results show
--- NOTE | 2019-03-12 11:20 | PN ---
Progress Note (short form) - Note Progress Note: Resting in bed in NAD. No cough, sputum production. CT: no acute process noted, official read pending. Intake & Output 03/09/19 03/10/19 03/11/19 03/12/19 23:59 23:59 23:59 23:59 Intake Total 1000 1620 1680 Balance 1000 1620 1680 Weight 206 lb 209 lb 3.2 oz Last Vital Signs Temp Pulse Resp BP Pulse Ox 97.9 F 67 16 155/83 97 03/12/19 08:41 03/12/19 08:41 03/12/19 08:41 03/12/19 08:41 03/12/19 10:00 Active Medications Acetaminophen (Tylenol -) 650 mg PO Q6H PRN PRN Reason: FEVER Last Admin: 03/12/19 01:13 Dose: 650 mg Enoxaparin Sodium (Lovenox -) 40 mg SQ DAILY [facility] Last Admin: 03/12/19 10:07 Dose: 40 mg Sodium Chloride (Normal Saline -) 1,000 mls @ 100 mls/hr IV ASDIR [facility] Last Admin: 03/12/19 06:33 Dose: 100 mls/hr Doxycycline Hyclate 100 mg/ (Dextrose) 100 mls @ 100 mls/hr IVPB BID MARIANNE Last Admin: 03/12/19 10:09 Dose: 100 mls/hr Ceftriaxone Sodium 1 gm/ (Dextrose) 50 mls @ 100 mls/hr IVPB DAILY [facility]; Protocol Last Admin: 03/12/19 10:08 Dose: 100 mls/hr GENERAL: Awake, alert, and fully oriented, in no acute distress. HEAD: Normal with no signs of trauma. EYES: sclera anicteric, conjunctiva clear. No lid lag. EARS, NOSE, THROAT: oropharynx clear without exudates. Moist mucous membranes. NECK: Normal range of motion, supple without lymphadenopathy, JVD, or masses. LUNGS: Breath sounds equal, clear to auscultation bilaterally. No wheezes, and no crackles. No accessory muscle use. HEART: Regular rate and rhythm, normal S1 and S2 without murmur, rub or gallop. ABDOMEN: Soft, nontender, obese, normoactive bowel sounds, no guarding, no rebound, no masses. No hepatomegaly or splenomegaly. MUSCULOSKELETAL: Normal range of motion at all joints. No bony deformities or tenderness. No CVA tenderness. UPPER EXTREMITIES: 2+ pulses, warm, well-perfused. No cyanosis. No clubbing. No peripheral edema. LOWER EXTREMITIES: 2+ pulses, warm, well-perfused. No calf tenderness. No peripheral edema. NEUROLOGICAL: Non-focal PSYCHIATRIC: Cooperative. Good eye contact. Appropriate mood and affect. Laboratory Results - last 24 hr 03/11/19 03/12/19 03/12/19 14:28 07:35 07:35 WBC 2.0 L RBC 3.84 L Hgb 11.9 Hct 34.8 L MCV 90.8 MCH 31.0 MCHC 34.1 RDW 13.4 Plt Count 78 L D MPV 8.5 Absolute Neuts (auto) 1.2 L Neutrophils % 63.8 D Lymphocytes % 25.5 D Monocytes % 9.5 D Eosinophils % 0.1 D Basophils % 1.1 Nucleated RBC % 0 Anticoagulation Therapy No Result Required. Puncture Site Right radial ABG pH 7.44 ABG pCO2 at Pt Temp 29.4 L ABG pO2 at Pt Temp 65.3 L ABG HCO3 19.8 L ABG O2 Sat (Measured) 93.5 L ABG O2 Content 13.6 ABG Base Excess -3.0 L Cornelius Test Positive O2 Delivery Device Room air Oxygen Flow Rate 21% Vent Mode No Result Required. Vent Rate No Result Required. Mechanical Rate No Result Required. Pressure Support Vent No Result Required. Sodium 139 Potassium 3.8 Chloride 110 H Carbon Dioxide 21 Anion Gap 9 BUN 14.8 Creatinine 1.0 Est GFR (CKD-EPI)AfAm 83.77 Est GFR (CKD-EPI)NonAf 72.28 Random Glucose 87 Calcium 7.8 L Magnesium 2.2 Total Bilirubin 0.7 AST 80 H ALT 55 Alkaline Phosphatase 59 Total Protein 5.9 L Albumin 2.9 L Problem List - Problems (1) Fever Code(s): R50.9 - FEVER, UNSPECIFIED Qualifiers: Fever type: unspecified Qualified Code(s): R50.9 - Fever, unspecified (2) Joint pain Code(s): M25.50 - PAIN IN UNSPECIFIED JOINT Qualifiers: Joint pain location: unspecified Qualified Code(s): M25.50 - Pain in unspecified joint (3) Osteoarthritis of left hip Code(s): M16.12 - UNILATERAL PRIMARY OSTEOARTHRITIS, LEFT HIP (4) Osteoarthritis of right hip Code(s): M16.11 - UNILATERAL PRIMARY OSTEOARTHRITIS, RIGHT HIP (5) HTN (hypertension) Code(s): I10 - ESSENTIAL (PRIMARY) HYPERTENSION IMP FEVER ? , Low clinical suspicion of PNA HTN GERD PROSTATE CA OA ANEMIA/THROMBOCYOPENIA PLAN ABX PER ID FOLLOW OFFICIAL READ OF CHEST CT CULTURES SEROLOGY Dr Michel
[2019-03-12] MEDS: NIFEdipine E.R. 90 MG TABLET (FP) PO SCH (14:26)
[2019-03-12] MEDS: QUINAPRIL HCL 40 MG TABLET (FP) PO SCH (15:52)
--- NOTE | 2019-03-12 16:47 | PN ---
Physical Exam: SUBJECTIVE: Patient seen and examined at the bedside. feels better today, has more energy he feels. 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 He presents to the ED on 03/11/2019 with generalized weakness and fever. He reports high fevers of 102F at home. EMS found a tick on the right axilla of the patient upon arrival. The patient states he was unaware of tick and is unsure of how long it has been there. The tick was wei in color and was removed in the ED. Vital Signs Period Temp Pulse Resp BP Sys/Lujan Pulse Ox Last 24 Hr 97.9 F-101.9 F 63-68 16-20 113-158/61-91 93-97 Laboratory Results - last 24 hr GENERAL: The patient is awake, alert, and fully oriented, in no acute distress. HEAD: Normal with no signs of trauma. EYES: PERRL, extraocular movements intact, sclera anicteric, conjunctiva clear. No ptosis. ENT: Ears normal, nares patent, oropharynx clear without exudates, moist mucous membranes. NECK: Trachea midline, full range of motion, supple. LUNGS: Breath sounds equal, clear to auscultation bilaterally, no wheezes HEART: Regular rate and rhythm ABDOMEN: Soft, nontender, nondistended, normoactive bowel sounds, no guarding, no rebound, no hepatosplenomegaly, no masses. EXTREMITIES: no edema. NEUROLOGICAL: Normal speech, gait not observed. 03/10/19 03/12/19 03/12/19 21:35 07:35 07:35 WBC 2.0 L RBC 3.84 L Hgb 11.9 Hct 34.8 L MCV 90.8 MCH 31.0 MCHC 34.1 RDW 13.4 Plt Count 78 L D MPV 8.5 Absolute Neuts (auto) 1.2 L Neutrophils % 63.8 D Lymphocytes % 25.5 D Monocytes % 9.5 D Eosinophils % 0.1 D Basophils % 1.1 Nucleated RBC % 0 Sodium 139 Potassium 3.8 Chloride 110 H Carbon Dioxide 21 Anion Gap 9 BUN 14.8 Creatinine 1.0 Est GFR (CKD-EPI)AfAm 83.77 Est GFR (CKD-EPI)NonAf 72.28 Random Glucose 87 Calcium 7.8 L Magnesium 2.2 Total Bilirubin 0.7 AST 80 H ALT 55 Alkaline Phosphatase 59 Total Protein 5.9 L Albumin 2.9 L Lyme Screen IgG & IgM <0.91 Active Medications Generic Name Dose Route Start Last Admin Trade Name Freq PRN Reason Stop Dose Admin Acetaminophen 650 mg 03/11/19 12:40 03/12/19 01:13 Tylenol - PO 650 mg Q6H PRN Administration FEVER Enoxaparin Sodium 40 mg 03/11/19 10:00 03/12/19 10:07 Lovenox - SQ 40 mg DAILY MARIANNE Administration Doxycycline Hyclate 100 mg/ 100 mls @ 100 mls/hr 03/11/19 13:45 03/12/19 10: 09 Dextrose IVPB 100 mls/hr BID MARIANNE Administration Ceftriaxone Sodium 1 gm/ 50 mls @ 100 mls/hr 03/12/19 10:00 03/12/19 10:08 Dextrose IVPB 100 mls/hr DAILY MARIANNE Administration Protocol Nifedipine 90 mg 03/12/19 12:00 03/12/19 14:26 Procardia Xl - PO 90 mg DAILY MARIANNE Administration Quinapril HCl 40 mg 03/12/19 12:00 03/12/19 15:52 Accupril - PO 40 mg DAILY MARIANNE Administration ASSESSMENT/PLAN: Problem List - Problems (1) Fever Assessment/Plan: fever of unknown origin, being ruled out for tick borne illness vs pneumonia vs other source meets sepsis criteria on admission blood and urine cultures pending on doxy and ceftriaxone pending cultures and lymes serology, ID also sent blood work for babesia/ehrlichia tylenol prn Pulmonary following, chest ct pending Code(s): R50.9 - FEVER, UNSPECIFIED Qualifiers: Fever type: unspecified Qualified Code(s): R50.9 - Fever, unspecified (2) Joint pain Assessment/Plan: physical therapy Code(s): M25.50 - PAIN IN UNSPECIFIED JOINT Qualifiers: Joint pain location: unspecified Qualified Code(s): M25.50 - Pain in unspecified joint (3) Systemic inflammatory response syndrome (SIRS) Code(s): R65.10 - SIRS OF NON-INFECTIOUS ORIGIN W/O ACUTE ORGAN DYSFUNCTION (4) UTI (urinary tract infection) Assessment/Plan: started on ceftriaxone 1mg for + UTI. urine culture pending Code(s): N39.0 - URINARY TRACT INFECTION, SITE NOT SPECIFIED Qualifiers: Urinary tract infection type: site unspecified Hematuria presence: without hematuria Qualified Code(s): N39.0 - Urinary tract infection, site not specified (5) ANNELIESE (acute kidney injury) Assessment/Plan: monitor daily Code(s): N17.9 - ACUTE KIDNEY FAILURE, UNSPECIFIED (6) Osteoarthritis of left hip Assessment/Plan: for physical therapy bilateral hip replacement in May 2017 and May 2018 Code(s): M16.12 - UNILATERAL PRIMARY OSTEOARTHRITIS, LEFT HIP (7) Osteoarthritis of right hip Assessment/Plan: bilateral hip replacement in May 2017 and May 2018 Code(s): M16.11 - UNILATERAL PRIMARY OSTEOARTHRITIS, RIGHT HIP (8) BPH (benign prostatic hyperplasia) Assessment/Plan: monitor urine output Code(s): N40.0 - BENIGN PROSTATIC HYPERPLASIA WITHOUT LOWER URINRY TRACT SYMP (9) HTN (hypertension) Assessment/Plan: restart home meds. Code(s): I10 - ESSENTIAL (PRIMARY) HYPERTENSION Visit type - Emergency Visit Emergency Visit: Yes ED Registration Date: 03/11/19 Care time: The patient presented to the Emergency Department on the above date and was hospitalized for further evaluation of their emergent condition. - New Patient This patient is new to me today: No - Critical Care Critical Care patient: No - Discharge Referral Referred to [facility] Med P.C.: No
[2019-03-13 08:17] LABS: BASO % 0.8 % (0-2.0); HEMATOCRIT 30.6 % (35.4-49); HEMOGLOBIN 10.9 GM/dL (11.7-16.9); LYMPH % 38.9 % (8-40); MCH 31.5 pg (25.7-33.7); MCHC 35.5 g/dl (32.0-35.9); MEAN CELL VOLUME 88.7 fl (80-96); MEAN PLT VOLUME 9.2 fl (7.5-11.1); MONO % 12.2 % (3.8-10.2); NEUT % 46.1 % (42.8-82.8); PLATELET COUNT 76 K/MM3 (134-434); RBC 3.45 M/mm3 (4.00-5.60); RDW 12.9 % (11.9-15.9); WHITE BLOOD COUNT 2.4 K/mm3 (4.0-10.0)
[2019-03-13] MEDS ORDERED: PT OWN MED DRAWER 7, Y5N ONE ×2 (09:12→10:42)
[2019-03-13] MEDS ORDERED: cefTRIAXone SODIUM 1 GM VIAL ONE (09:12)
[2019-03-13] MEDS ORDERED: DEXTROSE 5%-WATER - 50 ML IVPB ONE (09:13)
[2019-03-13] MEDS: CEFTRIAXONE 1 GM in DEXTROSE 5%-WATER - 50 ML IVPB SCH (09:14)
[2019-03-13] MEDS: QUINAPRIL HCL 40 MG TABLET (FP) PO SCH (09:15)
[2019-03-13] MEDS: ENOXAPARIN NA (PORCINE) 40 MG/0.4 ML DISP.SYRIN SQ SCH (09:16)
[2019-03-13] MEDS: NIFEdipine E.R. 90 MG TABLET (FP) PO SCH (09:16)
[2019-03-13 09:30] LABS: ALBUMIN 2.9 g/dl (3.4-5.0); BILIRUBIN,TOTAL 0.5 mg/dL (0.2-1); BLOOD UREA NITROGEN 13.6 mg/dL (7-18); CALCIUM 7.8 mg/dL (8.5-10.1); CREATININE 0.9 mg/dL (0.55-1.3); MAGNESIUM 1.8 mg/dL (1.8-2.4); POTASSIUM 3.7 mmol/L (3.5-5.1)
[2019-03-13] MEDS: DOXYCYCLINE INJECTION 100 MG in DEXTROSE 5%-WATER - 100 ML IVPB SCH ×2 (10:55→22:06)
[2019-03-13 11:24] LABS: ANISOCYTOSIS 2+; MACROCYTOSIS 0; PLATELET ESTIMATE DECREASED; TEAR DROP CELLS 1+
--- NOTE | 2019-03-13 11:56 | PN ---
Progress Note, Physician History of Present Illness: stable no new issues - Current Medication List Current Medications: Active Medications Acetaminophen (Tylenol -) 650 mg PO Q6H PRN PRN Reason: FEVER Last Admin: 03/12/19 01:13 Dose: 650 mg Enoxaparin Sodium (Lovenox -) 40 mg SQ DAILY [facility] Last Admin: 03/13/19 09:16 Dose: 40 mg Doxycycline Hyclate 100 mg/ (Dextrose) 100 mls @ 100 mls/hr IVPB BID [facility] Last Admin: 03/13/19 10:55 Dose: 100 mls/hr Ceftriaxone Sodium 1 gm/ (Dextrose) 50 mls @ 100 mls/hr IVPB DAILY [facility]; Protocol Last Admin: 03/13/19 09:14 Dose: 100 mls/hr Nifedipine (Procardia Xl -) 90 mg PO DAILY [facility] Last Admin: 03/13/19 09:16 Dose: 90 mg Quinapril HCl (Accupril -) 40 mg PO DAILY [facility] Last Admin: 03/13/19 09:15 Dose: 40 mg - Objective Vital Signs: Vital Signs Temperature 98.1 F 03/13/19 06:00 Pulse Rate 79 03/13/19 06:00 Respiratory Rate 18 03/13/19 06:00 Blood Pressure 145/64 03/13/19 06:00 O2 Sat by Pulse Oximetry (%) 95 03/12/19 21:00 Constitutional: Yes: No Distress, Calm Cardiovascular: Yes: S1, S2 Respiratory: Yes: Regular, CTA Bilaterally Gastrointestinal: Yes: Normal Bowel Sounds, Soft Musculoskeletal: Yes: WNL Extremities: Yes: WNL Neurological: Yes: Alert, Oriented Psychiatric: Yes: Alert, Oriented Labs: CBC, BMP 03/13/19 07:22 03/13/19 07:22 INR, PTT INR 1.14 (0.83-1.09) H 03/10/19 21:35 Assessment/Plan fever rash tick bite weakness plan continue doxy close watch await for results rest as per the team
[2019-03-13 16:09] LABS: BABESIA MICROTI ANTIBODY IGG <1:10 (Neg:<1:10); BABESIA MICROTI ANTIBODY IGM <1:10 (Neg:<1:10)
--- NOTE | 2019-03-13 17:39 | PN ---
Physical Exam: SUBJECTIVE: Patient seen and examined at the bedside. 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 He presents to the ED on 03/11/2019 with generalized weakness and fever. He reports high fevers of 102F at home. EMS found a tick on the right axilla of the patient upon arrival. The patient states he was unaware of tick and is unsure of how long it has been there. The tick was wei in color and was removed in the ED. remains afebrile. lymes titers pending. Vital Signs Period Temp Pulse Resp BP Sys/Lujan Pulse Ox Last 24 Hr 98.1 F-99.1 F 64-87 18-20 118-145/58-70 95-95 GENERAL: The patient is awake, alert, and fully oriented, in no acute distress. HEAD: Normal with no signs of trauma. EYES: PERRL, extraocular movements intact, sclera anicteric, conjunctiva clear. No ptosis. ENT: Ears normal, nares patent, oropharynx clear without exudates, moist mucous membranes. NECK: Trachea midline, full range of motion, supple. LUNGS: Breath sounds equal, clear to auscultation bilaterally, no wheezes HEART: Regular rate and rhythm ABDOMEN: Soft, nontender, nondistended, normoactive bowel sounds, no guarding, no rebound, no hepatosplenomegaly, no masses. EXTREMITIES: no edema. NEUROLOGICAL: Normal speech, gait not observed. Laboratory Results - last 24 hr 03/11/19 03/13/19 03/13/19 14:08 07:22 07:22 WBC 2.4 L RBC 3.45 L Hgb 10.9 L Hct 30.6 L MCV 88.7 MCH 31.5 MCHC 35.5 RDW 12.9 Plt Count 76 L MPV 9.2 Absolute Neuts (auto) 1.1 L Neutrophils % 46.1 D Neutrophils % (Manual) 41.4 L D Band Neutrophils % 13.1 Lymphocytes % 38.9 D Lymphocytes % (Manual) 13.2 Monocytes % 12.2 H Monocytes % (Manual) 9 D Eosinophils % 2.0 D Eosinophils % (Manual) 1.0 Basophils % 0.8 Basophils % (Manual) 0.0 Myelocytes % (Man) 0 Promyelocytes % (Man) 0 Blast Cells % (Manual) 0 Nucleated RBC % 0 Metamyelocytes 0 Hypochromia 0 Platelet Estimate Decreased Platelet Comment Present Polychromasia 0 Poikilocytosis 1+ Anisocytosis 2+ Microcytosis 1+ Macrocytosis 0 Spherocytes 1+ Tear Drop Cells 1+ Chuck Cells 1+ Sodium 139 Potassium 3.7 Chloride 109 H Carbon Dioxide 22 Anion Gap 8 BUN 13.6 Creatinine 0.9 Est GFR (CKD-EPI)AfAm 95.15 Est GFR (CKD-EPI)NonAf 82.09 Random Glucose 93 Calcium 7.8 L Magnesium 1.8 Total Bilirubin 0.5 AST 57 H ALT 52 Alkaline Phosphatase 64 Total Protein 6.0 L Albumin 2.9 L Babesia microti IgG Ab <1:10 Babesia microti IgM Ab <1:10 Active Medications Generic Name Dose Route Start Last Admin Trade Name Freq PRN Reason Stop Dose Admin Acetaminophen 650 mg 03/11/19 12:40 03/12/19 01:13 Tylenol - PO 650 mg Q6H PRN Administration FEVER Enoxaparin Sodium 40 mg 03/11/19 10:00 03/13/19 09:16 Lovenox - SQ 40 mg DAILY MARIANNE Administration Doxycycline Hyclate 100 mg/ 100 mls @ 100 mls/hr 03/11/19 13:45 03/13/19 10: 55 Dextrose IVPB 100 mls/hr BID MARIANNE Administration Ceftriaxone Sodium 1 gm/ 50 mls @ 100 mls/hr 03/12/19 10:00 03/13/19 09:14 Dextrose IVPB 100 mls/hr DAILY MARIANNE Administration Protocol Nifedipine 90 mg 03/12/19 12:00 03/13/19 09:16 Procardia Xl - PO 90 mg DAILY MARIANNE Administration Quinapril HCl 40 mg 03/12/19 12:00 03/13/19 09:15 Accupril - PO 40 mg DAILY MARIANNE Administration ASSESSMENT/PLAN: Problem List - Problems (1) Fever Assessment/Plan: fevers resolved x 24 hours. being ruled out for tick borne illness vs pneumonia vs other source meets sepsis criteria on admission blood and urine cultures negative to dates on doxy and ceftriaxone pending lymes serology, ID also sent blood work for babesia/ehrlichia tylenol prn Pulmonary following, chest ct Code(s): R50.9 - FEVER, UNSPECIFIED Qualifiers: Fever type: unspecified Qualified Code(s): R50.9 - Fever, unspecified (2) Joint pain Assessment/Plan: physical therapy Code(s): M25.50 - PAIN IN UNSPECIFIED JOINT Qualifiers: Joint pain location: unspecified Qualified Code(s): M25.50 - Pain in unspecified joint (3) Systemic inflammatory response syndrome (SIRS) Code(s): R65.10 - SIRS OF NON-INFECTIOUS ORIGIN W/O ACUTE ORGAN DYSFUNCTION (4) UTI (urinary tract infection) Assessment/Plan: started on ceftriaxone 1mg for + UTI. urine culture pending Code(s): N39.0 - URINARY TRACT INFECTION, SITE NOT SPECIFIED Qualifiers: Urinary tract infection type: site unspecified Hematuria presence: without hematuria Qualified Code(s): N39.0 - Urinary tract infection, site not specified (5) ANNELIESE (acute kidney injury) Assessment/Plan: monitor daily Code(s): N17.9 - ACUTE KIDNEY FAILURE, UNSPECIFIED (6) Osteoarthritis of left hip Assessment/Plan: for physical therapy bilateral hip replacement in May 2017 and May 2018 Code(s): M16.12 - UNILATERAL PRIMARY OSTEOARTHRITIS, LEFT HIP (7) Osteoarthritis of right hip Assessment/Plan: bilateral hip replacement in May 2017 and May 2018 Code(s): M16.11 - UNILATERAL PRIMARY OSTEOARTHRITIS, RIGHT HIP (8) BPH (benign prostatic hyperplasia) Assessment/Plan: monitor urine output Code(s): N40.0 - BENIGN PROSTATIC HYPERPLASIA WITHOUT LOWER URINRY TRACT SYMP (9) HTN (hypertension) Assessment/Plan: restart home meds. Code(s): I10 - ESSENTIAL (PRIMARY) HYPERTENSION Visit type - Emergency Visit Emergency Visit: Yes ED Registration Date: 03/11/19 Care time: The patient presented to the Emergency Department on the above date and was hospitalized for further evaluation of their emergent condition. - New Patient This patient is new to me today: No - Critical Care Critical Care patient: No - Discharge Referral Referred to [facility] No
[2019-03-14 07:28] VITALS: BP 126/98; PULSE 74; TEMP 98.6
[2019-03-14] MEDS ORDERED: cefTRIAXone SODIUM 1 GM VIAL ONE (08:54)
[2019-03-14] MEDS ORDERED: DEXTROSE 5%-WATER - 50 ML IVPB ONE (08:54)
[2019-03-14] MEDS: CEFTRIAXONE 1 GM in DEXTROSE 5%-WATER - 50 ML IVPB SCH (09:29)
[2019-03-14] MEDS ORDERED: PT OWN MED DRAWER 7, Y5N ONE (09:30)
[2019-03-14] MEDS: ENOXAPARIN NA (PORCINE) 40 MG/0.4 ML DISP.SYRIN SQ SCH (09:31)
[2019-03-14] MEDS: QUINAPRIL HCL 40 MG TABLET (FP) PO SCH (09:31)
[2019-03-14] MEDS: NIFEdipine E.R. 90 MG TABLET (FP) PO SCH (09:31)
[2019-03-14] MEDS: DOXYCYCLINE INJECTION 100 MG in DEXTROSE 5%-WATER - 100 ML IVPB SCH (09:32)
[2019-03-14 09:37] LABS: BASO % 0.7 % (0-2.0); HEMATOCRIT 34.6 % (35.4-49); HEMOGLOBIN 12.1 GM/dL (11.7-16.9); LYMPH % 46.3 % (8-40); MCH 31.1 pg (25.7-33.7); MCHC 34.9 g/dl (32.0-35.9); MONO % 7.4 % (3.8-10.2); NEUT % 43.6 % (42.8-82.8); PLATELET COUNT 108 K/MM3 (134-434); RBC 3.89 M/mm3 (4.00-5.60); RDW 13.2 % (11.9-15.9); WHITE BLOOD COUNT 2.8 K/mm3 (4.0-10.0)
[2019-03-14 09:56] LABS: ALBUMIN 3.4 g/dl (3.4-5.0); BILIRUBIN,TOTAL 0.8 mg/dL (0.2-1); CALCIUM 8.5 mg/dL (8.5-10.1); MAGNESIUM 1.8 mg/dL (1.8-2.4); POTASSIUM 3.3 mmol/L (3.5-5.1)
[2019-03-14] MEDS ORDERED: POTASSIUM CHLORIDE TABS 20 MEQ TABLET.ER (FP) PO ONE (10:36)
--- NOTE | 2019-03-14 13:24 | PN ---
Progress Note, Physician History of Present Illness: stable no new issues afebrile - Current Medication List Current Medications: Active Medications Acetaminophen (Tylenol -) 650 mg PO Q6H PRN PRN Reason: FEVER Last Admin: 03/12/19 01:13 Dose: 650 mg Enoxaparin Sodium (Lovenox -) 40 mg SQ DAILY [facility] Last Admin: 03/14/19 09:31 Dose: 40 mg Doxycycline Hyclate 100 mg/ (Dextrose) 100 mls @ 100 mls/hr IVPB BID [facility] Last Admin: 03/14/19 09:32 Dose: 100 mls/hr Ceftriaxone Sodium 1 gm/ (Dextrose) 50 mls @ 100 mls/hr IVPB DAILY [facility]; Protocol Last Admin: 03/14/19 09:29 Dose: 100 mls/hr Nifedipine (Procardia Xl -) 90 mg PO DAILY [facility] Last Admin: 03/14/19 09:31 Dose: 90 mg Quinapril HCl (Accupril -) 40 mg PO DAILY [facility] Last Admin: 03/14/19 09:31 Dose: 40 mg - Objective Vital Signs: Vital Signs Temperature 98.6 F 03/14/19 07:25 Pulse Rate 74 03/14/19 07:25 Respiratory Rate 20 03/14/19 07:25 Blood Pressure 126/98 03/14/19 07:25 O2 Sat by Pulse Oximetry (%) 95 03/13/19 21:00 Constitutional: Yes: No Distress, Calm Cardiovascular: Yes: Regular Rate and Rhythm Respiratory: Yes: Regular Gastrointestinal: Yes: Normal Bowel Sounds, Soft Musculoskeletal: Yes: WNL Extremities: Yes: WNL Neurological: Yes: Alert, Oriented Psychiatric: Yes: Alert, Oriented Labs: CBC, BMP 03/14/19 08:50 03/14/19 08:50 INR, PTT INR 1.14 (0.83-1.09) H 03/10/19 21:35 Assessment/Plan fever rash tick bite weakness ehrilichiosis plan continue doxy close watch monitor wbc in a week doxy for 21 more days
[2019-03-14] MEDS ORDERED: DOXYCYCLINE HYCLATE 100 MG CAPSULE PO ONE (13:39)
--- NOTE | 2019-03-14 13:43 | DS ---
Physical Exam: SUBJECTIVE: Patient seen and examined at the bedside. wants to go home and follow up with his PCP on discharge. he will also f/u with Dr. Michael. 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 He presents to the ED on 03/11/2019 with generalized weakness and fever. He reports high fevers of 102F at home. EMS found a tick on the right axilla of the patient upon arrival. The patient states he was unaware of tick and is unsure of how long it has been there. The tick was wei in color and was removed in the ED. 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 Instructed to f/u with his PCP for repeat WBC Vital Signs Period Temp Pulse Resp BP Sys/Lujan Pulse Ox Last 24 Hr 97.8 F-98.6 F 64-87 18-20 105-134/47-98 95 PHYSICAL EXAM GENERAL: The patient is awake, alert, and fully oriented, in no acute distress. HEAD: Normal with no signs of trauma. EYES: PERRL, extraocular movements intact, sclera anicteric, conjunctiva clear. No ptosis. ENT: Ears normal, nares patent, oropharynx clear without exudates, moist mucous membranes. NECK: Trachea midline, full range of motion, supple. LUNGS: Breath sounds equal, clear to auscultation bilaterally, no wheezes HEART: Regular rate and rhythm ABDOMEN: Soft, nontender, nondistended, normoactive bowel sounds, no guarding, no rebound, no hepatosplenomegaly, no masses. EXTREMITIES: no edema. NEUROLOGICAL: Normal speech, gait not observed. LABS Laboratory Results - last 24 hr 03/10/19 03/11/19 03/11/19 21:35 14:08 14:08 WBC RBC Hgb Hct MCV MCH MCHC RDW Plt Count MPV Absolute Neuts (auto) Neutrophils % Lymphocytes % Monocytes % Eosinophils % Basophils % Nucleated RBC % Sodium Potassium Chloride Carbon Dioxide Anion Gap BUN Creatinine Est GFR (CKD-EPI)AfAm Est GFR (CKD-EPI)NonAf Random Glucose Calcium Magnesium Total Bilirubin AST ALT Alkaline Phosphatase Total Protein Albumin A.phagocytophil DNA PCR Positive H Babesia microti IgG Ab <1:10 Babesia microti IgM Ab <1:10 Lyme IgM 23 kDa Band No Result Required. Lyme IgM 39 kDa Band No Result Required. Lyme IgM 41 kDa Band No Result Required. E.chaffeensis DNA (PCR) Negative 03/14/19 03/14/19 08:50 08:50 WBC 2.8 L RBC 3.89 L Hgb 12.1 Hct 34.6 L MCV 89.0 MCH 31.1 MCHC 34.9 RDW 13.2 Plt Count 108 L D MPV 9.0 Absolute Neuts (auto) 1.2 L Neutrophils % 43.6 Lymphocytes % 46.3 H Monocytes % 7.4 Eosinophils % 2.0 Basophils % 0.7 Nucleated RBC % 0 Sodium 139 Potassium 3.3 L Chloride 106 Carbon Dioxide 23 Anion Gap 10 BUN 17.0 Creatinine 1.0 Est GFR (CKD-EPI)AfAm 83.77 Est GFR (CKD-EPI)NonAf 72.28 Random Glucose 147 H Calcium 8.5 Magnesium 1.8 Total Bilirubin 0.8 AST 86 H ALT 81 H Alkaline Phosphatase 72 Total Protein 7.0 Albumin 3.4 A.phagocytophil DNA PCR Babesia microti IgG Ab Babesia microti IgM Ab Lyme IgM 23 kDa Band Lyme IgM 39 kDa Band Lyme IgM 41 kDa Band E.chaffeensis DNA (PCR) HOSPITAL COURSE: Date of Admission:03/11/19 Date of Discharge: 03/14/19 Minutes to complete discharge: 45 Discharge Summary Problems reviewed: Yes Reason For Visit: URINARY TRACT INFECTION,BENIGN PROSTATE HYPERPLASI Current Active Problems Fever (Acute) Joint pain (Acute) Systemic inflammatory response syndrome (SIRS) (Acute) UTI (urinary tract infection) (Acute) Condition: Improved - Instructions Diet, Activity, Other Instructions: Please continue the Doxycycline 100mg by mouth TWICE per day for 21 more days. START the medication tonight then again tomorrow at 8am and 8pm and continue these times until complete You will need to have your WBC/CBC monitored with your primary care doctor. Thank you for allowing us to care for you. 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 Instructed to f/u with his PCP for repeat WBC Code(s): R50.9 - FEVER, UNSPECIFIED Qualifiers: Fever type: unspecified Qualified Code(s): R50.9 - Fever, unspecified (2) Joint pain Assessment/Plan: physical therapy Code(s): M25.50 - PAIN IN UNSPECIFIED JOINT Qualifiers: Joint pain location: unspecified Qualified Code(s): M25.50 - Pain in unspecified joint (3) Systemic inflammatory response syndrome (SIRS) Code(s): R65.10 - SIRS OF NON-INFECTIOUS ORIGIN W/O ACUTE ORGAN DYSFUNCTION (4) UTI (urinary tract infection) Assessment/Plan: started on ceftriaxone 1mg for + UTI. urine culture shows low colony count, per ID, no further need for ceftriaxone. Code(s): N39.0 - URINARY TRACT INFECTION, SITE NOT SPECIFIED Qualifiers: Urinary tract infection type: site unspecified Hematuria presence: without hematuria Qualified Code(s): N39.0 - Urinary tract infection, site not specified (5) ANNELIESE (acute kidney injury) Assessment/Plan: stable. outpatient follow up. Code(s): N17.9 - ACUTE KIDNEY FAILURE, UNSPECIFIED (6) Osteoarthritis of left hip Assessment/Plan: for physical therapy bilateral hip replacement in May 2017 and May 2018 Code(s): M16.12 - UNILATERAL PRIMARY OSTEOARTHRITIS, LEFT HIP (7) Osteoarthritis of right hip Assessment/Plan: bilateral hip replacement in May 2017 and May 2018 Code(s): M16.11 - UNILATERAL PRIMARY OSTEOARTHRITIS, RIGHT HIP (8) BPH (benign prostatic hyperplasia) Assessment/Plan: monitor urine output Code(s): N40.0 - BENIGN PROSTATIC HYPERPLASIA WITHOUT LOWER URINRY TRACT SYMP (9) HTN (hypertension) Assessment/Plan: restart home meds. Code(s): I10 - ESSENTIAL (PRIMARY) HYPERTENSION This patient is new to me today: Yes Date on this admission: 11/02/19 Emergency Visit: No Critical Care patient: No - Discharge Referral Referred to [facility] Med P.C.: No
[2019-03-14 14:26] LABS: ANISOCYTOSIS 1+; MACROCYTOSIS 0; PLATELET ESTIMATE DECREASED
== END 2019-03-14 15:20 | disposition home or self-care (01) | DRG 868 ==
LOC: JER 20:52 → JERBED 03-11 02:01 → J5S 03-11 02:51
PROVIDERS: ADMIT Internal Medicine; ATTEND Nurse Practitioner Family
DX: A77.40 Ehrlichiosis, unspecified (principal); N39.0 Urinary tract infection, site not specified; R65.10 Systemic inflammatory response syndrome (SIRS) of non-infectious origin without acute organ dysfunction; N17.9 Acute kidney failure, unspecified; I10 Essential (primary) hypertension; R50.9 Fever, unspecified; N40.0 Benign prostatic hyperplasia without lower urinary tract symptoms; K21.9 Gastro-esophageal reflux disease without esophagitis; D64.9 Anemia, unspecified; D69.6 Thrombocytopenia, unspecified; E66.9 Obesity, unspecified; Z68.33 Body mass index [BMI] 33.0-33.9, adult; M16.0 Bilateral primary osteoarthritis of hip
CPT/HCPCS: 36415; 36600; 71045-TC-FY; 71250-TC; 80053; 81003; 82803; 83605; 83735; 84100; 84443; 84484; 85025; 85610; 85730; 86618; 86753; 87040; 87086; 87804; 93005; 93010; 94010; 97116-GP; 97161-GP; 99284-25; J0131; J7030

== ENCOUNTER 2023-07-07 13:44 | Emergency (ER) | payer OTHER, MEDICARE ==
[2023-07-07 14:01] VITALS: BP 129/79; PULSE 89; RESP 20; TEMP 98.3; BMI 33.7
[2023-07-07] MEDS: DIPHTH,PERTUSS(ACELL),TET 0.5 ML DISP.SYRIN IM ONE (16:08)
[2023-07-07] MEDS ORDERED: DIPHTH,PERTUSS(ACELL),TET 0.5 ML DISP.SYRIN IM ONE (16:11)
== END 2023-07-07 16:27 | disposition home or self-care (01) ==
LOC: FER 13:44
PROC: 3E0234Z Introduction of Serum, Toxoid and Vaccine into Muscle, Percutaneous Approach (ICD-10-PCS; principal; 2023-07-07)
DX: S22.42XA Multiple fractures of ribs, left side, initial encounter for closed fracture (principal); S00.31XA Abrasion of nose, initial encounter; S00.511A Abrasion of lip, initial encounter; W01.0XXA Fall on same level from slipping, tripping and stumbling without subsequent striking against object, initial encounter
CPT/HCPCS: 71045-TC-FY; 71101-TC-LT-FY; 90471; 90715; 99284-25

== ENCOUNTER 2024-04-18 17:59 | Emergency (ER) | payer OTHER, MEDICARE ==
[2024-04-18 18:23] VITALS: BMI 33.3
[2024-04-18 20:09] LABS: HEMATOCRIT 39.1 % (35.4-49); HEMOGLOBIN 13.4 G/dL (11.7-16.9); MCH 31.5 pg (25.7-33.7); MCHC 34.2 g/dl (32.0-35.9); MEAN CELL VOLUME 92.1 fl (80-96); MEAN PLT VOLUME 8.2 fl (7.5-11.1); PLATELET COUNT 226.4 10^3/uL (134-434); RBC 4.25 10^6/uL (4.00-5.60); RDW 13.1 % (11.9-15.9); WHITE BLOOD COUNT 7.4 10^3/uL (4.0-10.8)
[2024-04-18 20:17] LABS: INR 0.99 (0.83-1.09); PROTHROMBIN TIME (PATIENT) 11.3 SEC (9.7-13.0)
[2024-04-18 20:39] LABS: ALBUMIN 4.6 g/dl (3.4-5.0); BILIRUBIN,TOTAL 0.6 mg/dl (0.2-1); CALCIUM 9.7 mg/dl (8.5-10.1); CREATININE 1.1 mg/dl (0.6-1.3); POTASSIUM 4.1 mmol/L (3.5-5.1); TOT PROT 7.7 g/dl (6.4-8.2)
[2024-04-18 21:33] VITALS: TEMP 98.4
[2024-04-19 00:06] VITALS: BP 160/88; PULSE 75; RESP 16
== END 2024-04-19 00:07 | disposition short-term general hospital (02) ==
LOC: FER 17:59
DX: S06.5X0A Traumatic subdural hemorrhage without loss of consciousness, initial encounter (principal); W10.8XXA Fall (on) (from) other stairs and steps, initial encounter; Z20.822 Contact with and (suspected) exposure to COVID-19
CPT/HCPCS: 0241U-QW; 36415; 70450-TC; 71045-TC-FY; 80053; 84484; 85027; 85610; 93005; 99285-25